=== PATIENT | female | born 1945 | race Caucasian/White ===

== ENCOUNTER 2023-11-04 13:59 | Inpatient (IN) | payer OTHER, SELFPAY ==
--- NOTE | ~2023-11-04 | MR_ITS ---
EXAMINATION: MRI OF THE BRAIN WITHOUT CONTRAST CLINICAL INFORMATION: Ataxia, weakness and concern for stroke. COMPARISON: CT scan of the head 11/04/2023. TECHNIQUE: MRI of the brain was obtained using routine sequences without contrast. FINDINGS: No diffusion abnormalities are identified to suggest an acute or subacute infarct. No mass effect or midline shift is seen. There is mild commensurate prominence of the ventricles and sulci consistent with diffuse volume loss. There is also mild prominence of the extra-axial CSF around the cerebral convexities, which are consistent with cortical volume loss. There are scattered foci of hyperintense T2 and FLAIR signal in the periventricular and subcortical white matter, most consistent with chronic microvascular ischemic changes. No extra-axial fluid collections are seen. The brainstem and cerebellum are normal. No pathologic magnetic susceptibility artifact is identified on the gradient refocused acquisition. The craniovertebral junction, marrow signal, and midline structures are normal; there is a partially empty sella. There are spondylitic changes which are partially visualized in the mid and upper cervical spine. The major intracranial flow-voids at the level of the [place] of [place] are preserved. The dural venous sinus flow-voids are maintained. There are subcutaneous nodules in the right occipital and right parietal regions. There have been bilateral lens extractions. The mastoid air cells and paranasal sinuses are well-aerated. MR/MR head/brain wo con IMPRESSION: 1. There are no acute bleeds or territorial infarcts. No masses are demonstrated. 2. There are chronic microvascular ischemic changes and there is diffuse/cortical volume loss.
--- NOTE | ~2023-11-04 | CT_ITS ---
EXAMINATION: CT HEAD WITHOUT CONTRAST CLINICAL INFORMATION: Dizziness. COMPARISON: CT brain 12/27/2014 TECHNIQUE: Contiguous axial imaging was performed from the skull base to vertex without intravenous administration of contrast. This CT examination was performed using dose optimization techniques as appropriate, variously including the following: *Automated exposure control *Adjustment of mA and/or kV according to patient size (this includes techniques or standardized protocols for targeted exams where dose is matched to indication/reason for exam; i.e. extremities or head) *Use of iterative reconstruction technique DLP: 606 mGy-cm FINDINGS: There is no acute intra-axial, extra-axial bleed, masses or midline shift. There is no acute infarction evolution. There is no edema. Delaney to white matter differentiation is maintained normal. There is mild prominence of bilateral frontal subarachnoid space. The lateral ventricles are symmetrical in size but enlarged. Bone windows reveal no calvarial abnormality. There is no scalp soft tissue abnormality. CT/CT head/brain wo IV con IMPRESSION: 1. No acute intracranial process seen. 2. Mild cerebral volume loss.
[2023-11-04 14:15] VITALS: BP 200/100; BP 212/98; PULSE 60; PULSE 64; RESP 18; TEMP 37.1; O2SAT 100; O2SAT 99; BMI 22.7
--- NOTE | 2023-11-04 14:16 | ED.GENADULT ---
HPI - General Adult General Chief complaint: General Medical Stated complaint: Back pain, dizziness Time Seen by Provider: 11/04/23 14:15 Source: patient and EMS Mode of arrival: EMS Limitations: no limitations History of Present Illness HPI narrative: Patient is a 78 year old assigned female at with a history of left sided breast cancer presenting to the emergency department today with new left sided weakness and inability to balance. Patient states that since 11/02/2023, she woke up feeling very off balance. Patient states that she is unable to walk straight. Patient denies any dizziness, lightheadedness, abdominal pain, nausea, vomiting, fever, chills, blurry vision, double vision, loss of vision, chest pain, difficulty breathing, shortness of breath, back pain, night sweats, pain with urination, increased urinary frequency, increased urinary urgency, blood in her urine or stool, syncope or a near syncopal episode, recent trauma or falls, bowel incontinence, bladder incontinence, bowel retention, bladder retention, or any other complaints at this time. Onset (ago): day(s) (2) Relieving factors: none Exacerbating factors: none Associated symptoms: denies other symptoms Treatments prior to arrival: none Related Data Home Medications Medication Instructions Recorded Confirmed carisoprodol 350 mg tablet 350 mg PO BEDTIME 11/04/23 11/04/23 carvedilol 12.5 mg tablet 12.5 mg PO BID 11/04/23 11/04/23 cholecalciferol (vitamin D3) 50 50 mcg PO DAILY 11/04/23 11/04/23 mcg (2,000 unit) capsule (Vitamin D3) clonazepam 0.5 mg tablet 0.5 mg PO BID 11/04/23 11/04/23 clonazepam 0.5 mg tablet 0.5 mg PO DAILY@1200 PRN Anxiety 11/04/23 11/04/23 diphenhydramine HCl 25 mg capsule 25 mg PO BID 11/04/23 11/04/23 (Banophen) fluticasone propionate 50 1 spray intranasal DAILY 11/04/23 11/04/23 mcg/actuation nasal spray,suspension guanfacine 1 mg tablet 1 mg PO BID 11/04/23 11/04/23 hydromorphone 2 mg tablet 2 mg PO BID PRN Pain (Scale Score 11/04/23 11/04/23 7-10) lansoprazole 30 mg capsule,delayed 30 mg PO DAILY 11/04/23 11/04/23 release multivitamin 1 tab PO DAILY 11/04/23 11/04/23 vitamin B complex 1 tab PO DAILY 11/04/23 11/04/23 Allergies Allergy/AdvReac Type Severity Reaction Status Date / Time codeine [CODEINE] Allergy Unknown DIFFICULTY Verified 11/05/23 02:10 BREATHING epinephrine [EPINEPHRINE] Allergy Unknown UNKNOWN Verified 11/05/23 02:10 iodine [Iodine] Allergy Unknown DIFFICULTY Verified 11/05/23 02:10 BREATHING penicillin V Allergy Unknown Unknown Verified 11/05/23 02:10 Sulfa (Sulfonamide Allergy Unknown RASH Verified 11/05/23 02:10 Antibiotics) From Pen-Vee K Allergy Unknown RASH Uncoded 11/04/23 22:57 From PERCOCET AdvReac Unknown NIGHTMARES/ Uncoded 11/04/23 22:57 AGITATION Review of Systems Constitutional: Constitutional: Reports no additional constitutional complaints, Denies chills, Denies fever(s) and Denies night sweats Eyes: Eyes: Reports no additional eye complaints, Denies blurry vision, Denies change in vision, Denies diplopia, Denies eye discharge, Denies loss of vision and Denies eye pain ENT: Denies dizziness Cardiovascular: Cardiovascular: Reports no additional cardiovascular complaints, Denies chest pain, Denies lightheadedness, Denies Loss of Consciousness and Denies dyspnea Respiratory: Respiratory: Reports no additional respiratory complaints and Denies dyspnea Gastrointestinal: Gastrointestinal: Reports no additional gastrointestinal complaints, Denies abdominal pain, Denies melena, Denies hematochezia, Denies change in bowel habits and Denies change in stool character Genitourinary: Genitourinary: Denies hematuria, Denies urinary frequency, Denies dysuria, Denies urinary incontinence, Denies urinary hesitancy and Denies urinary urgency Musculoskeletal: Musculoskeletal: Reports no additional musculoskeletal complaints, Denies numbness and Denies tingling Neurologic: Denies dizziness, Denies loss of vision, Denies numbness and Denies tingling Comments: inability to walk straight, left sided weakness Psychiatric: Psychiatric: Reports no additional psychiatric complaints Endocrine: Endocrine: Reports no additional endocrine complaints Hematologic/Lymphatic: Hematologic/Lymphatic: Reports no additional hematologic/lymphatic complaints Allergic/Immunologic: Allergic/Immunologic: Reports no additional allergic/immunologic complaints PMFSH Past Medical History Attestation statement: The following information was validated with the patient. Source: old records reviewed and nursing notes reviewed Medical History (Updated 11/05/23 @ 03:39 by Alex Lopez MD) Endometriosis Rheumatoid arthritis Hypertension, essential Asthma Sclerosing mesenteritis Osteoarthritis GERD (gastroesophageal reflux disease) Breast cancer, left Surgical History (Updated 11/05/23 @ 03:25 by Alex Lopez MD) History of lumpectomy of left breast History of total abdominal hysterectomy History of section History of ovarian cystectomy Family History Family History (Updated 11/05/23 @ 03:26 by Alex Lopez MD) Mother No problems noted. Social History Social History Patient Tobacco Use Status: Former Tobacco user Smoked in Last 30 Days: No Use of substances other than those prescribed or required for medical reasons: No Advance Directives: Yes Advance Directives on File: Yes Advance Directives Date on File: 11/04/23 Nutrition Risks: No Nutritional Risk Physical Exam ED Vital Signs: Vital Signs - 24 hr 11/04/23 14:15 11/04/23 19:46 11/04/23 20:17 Temperature 98.7 F Pulse Rate 64 65 67 Respiratory Rate 18 17 14 Blood Pressure 212/98 H 193/77 H 178/80 H Pulse Oximetry 100 97 98 Oxygen Delivery Method Room Air Room Air Room Air BMI result Body Mass Index 22.7 Const General: cooperative, no acute distress, alert and awake Nutritional Appearance: well nourished Orientation/consciousness: patient oriented x3 Limitations: no limitations HENMT Head: Yes normal to inspection and Yes atraumatic Ears: hearing grossly normal bilaterally and external ears normal General nose exam: Normal external nose present, no nasal discharge noted and no epistaxis Face and sinus: Yes normal facial exam, No abrasion and No laceration Mouth: Normal oral and palatal mucosa present, no drooling and no muffled voice Eyes General: appearance normal, both eyes and all related structures Periorbital: periorbital findings normal Eyelids: Yes eyelids normal Conjunctivae: conjunctivae normal Pupils: Equal, round and reactive pupils present EOM: EOMs intact bilaterally Neck Neck: Yes normal visual inspection, Yes full ROM and Yes no lymphadenopathy Chest Chest palpation & inspection: normal inspection of the chest Resp Effort & Inspection: normal respiratory effort and able to speak in complete sentences GI Inspection: Yes normal to inspection Neuro General: patient oriented x3 and moves all extremities Cranial nerves: Yes Equal, round and reactive pupils present Cognition (Neuro): normal cognition Gait exam (Neuro): Ataxic gait present Motor exam (neuro): Other motor observations present (left sided weakness appreciated) Sensory Exam: Normal double simultaneous stimulation for sensation Romberg Test: Positive Extrem General: Yes normal to inspection, Yes full ROM and Yes capillary refill normal Psych Appearance: grossly normal Mental Status: mental status grossly normal Affect: normal affect Attitude: cooperative Thought process: Normal thought process present Thought content: Normal thought content present Insight: Good insight present (Psych) NIH Stroke Scale Internal: Initial- Upon Arrival Time: 14:15 Level of Consciousness: Alert Level of Consciousness Questions: Answers both questions correctly Level of Consciousness Commands: Performs both tasks correctly Best Gaze: Normal Visual: No visual loss Facial Palsy: Normal Motor Arm (Right): No drift Motor Arm (Left): Drift Motor Leg (Right): No drift Motor Leg (Left): No drift Limb Ataxia: Absent Sensory: Normal Best Language: No aphasia Dysarthia: Normal Extinction and Inattention: No abnormality Score: 1 Medications Administered Generic Name Dose Route Start Last Admin Trade Name Freq PRN Reason Stop Dose Admin Acetaminophen 650 mg 11/04/23 21:53 11/05/23 05:14 Acetaminophen 325 Mg Tablet PO 650 mg Q6H PRN Administration Pain, Mild (Pain Scale 1-3) Carvedilol 12.5 mg 11/05/23 09:00 11/05/23 09:23 Carvedilol 12.5 Mg Tablet PO 12.5 mg BID STEPHANIE Administration Protocol Clonazepam 0.5 mg 11/05/23 09:00 11/05/23 09:23 Clonazepam 0.5 Mg Tablet PO 0.5 mg BID STEPHANIE Administration Diphenhydramine HCl 25 mg 11/05/23 09:00 11/05/23 09:23 Diphenhydramine Hcl 25 Mg Capsule PO 25 mg BID STEPHANIE Administration Docusate Sodium 100 mg 11/05/23 09:00 11/05/23 09:24 Docusate Sodium 100 Mg Capsule PO Not Given BID [facility] Enoxaparin Sodium 40 mg 11/04/23 22:00 11/04/23 22:57 Enoxaparin Sodium 40 Mg/0.4 Ml Syringe SUBCUT 40 mg Q24H STEPHANIE Administration Multivitamins/Vitamin C 1 tab 11/05/23 09:00 11/05/23 09:23 Multivitamin Tablet PO 1 tab DAILY STEPHANIE Administration Sodium Chloride 3 ml 11/05/23 00:00 11/05/23 09:24 0.9 % Sodium Chloride Flush 3 Ml Syringe IVFLUSH 3 ml QSHIFT STEPHANIE Administration Vitamin D 50 mcg 11/05/23 09:00 11/05/23 09:23 Cholecalciferol (Vitamin D3) 25 Mcg Tablet PO 50 mcg DAILY STEPHANIE Administration Discontinued Medications Generic Name Dose Route Start Last Admin Trade Name Flavia PRN Reason Stop Dose Admin Carvedilol 12.5 mg 11/05/23 01:06 11/05/23 02:16 Carvedilol 12.5 Mg Tablet PO 11/05/23 01:07 12.5 mg ONCE ONE Administration Protocol Clonazepam 0.5 mg 11/05/23 01:07 11/05/23 02:16 Clonazepam 0.5 Mg Tablet PO 11/05/23 01:08 0.5 mg ONCE ONE Administration Medical Decision Making Medical Decision Making [facility] [place] Narrative: Patient is a 78 year old assigned female at with a history of left sided breast cancer and HTN presenting to the emergency department today with feeling off balance and left sided weakness new since Thursday. Patient's physical exam showed left sided upper and lower extremity weakness, a positive romberg test, and an ataxic gait. Patient's blood work was unremarkable. Patient's EKG was unremarkable. Patient's head CT showed no acute process. Patient is allergic to contrast dye / ioidine and thus, a head and neck CTA could not be obtained. Patient's blood pressure remained hypertensive while in the department with the highest being 212/98. I spoke to the hospitalist who agreed to admission. I explained my physical exam findings as well as all test results to the patient. I answered all questions asked by the patient. Patient verbalized agreement and understanding with this treatment plan and admission. Differential Diagnosis Differential Diagnoses: The differential diagnosis associated with the presentation includes Cerebellar stroke Hypertensive urgency Hypertensive emergency TIA CVA Admission/Observation Consideration of admission/observation: Escalation of care including admission/observation considered Patient to be admitted. Consult Healthcare Provider Management of the patient was discussed with: Hospitalist (agreed to admission.) Lab Data MDM Lab Attestation statement: I reviewed the patient's lab results. My interpretation of these studies and their corresponding values is that they are grossly normal. 11/05/23 06:11 11/05/23 06:11 Labs: Lab Results 11/04/23 11/04/23 Range/Units 15:13 20:57 WBC 4.6 L (4.8-10.8) X10*3/uL RBC 4.20 (4.20-5.50) X10*6/uL Hgb 12.5 (12.0-16.0) g/dl Hct 37.2 (37.0-47.0) % MCV 88.6 (80.0-98.0) fL MCH 29.8 (27.0-33.0) pg MCHC 33.6 (31.0-35.0) g/dl RDW 11.9 (11.0-16.0) % Plt Count 238 (160-400) X10*3/uL MPV 9.5 (9.4-12.3) fL Immature Gran % (Auto) 0.2 (0.0-0.4) % Neut % (Auto) 45.7 (45-73) % Lymph % (Auto) 41.6 H (20-40) % Payne % (Auto) 7.2 (2-11) % Eos % (Auto) 4.6 H (0-4) % Baso % (Auto) 0.7 (0-2) % Lymph # (Auto) 1.9 (1.2-4.9) X10*3/uL Payne # (Auto) 0.3 (0.1-1.2) X10*3/uL Eos # (Auto) 0.2 (0.0-0.4) X10*3/uL Baso # (Auto) 0.0 (0.0-0.2) X10*3/uL Abs Immat Gran (auto) 0.01 (0.00-0.03) X10*3/uL Absolute Neuts (auto) 2.1 (2.0-8.3) x10*3/uL Absolute Nucleated RBC 0.000 (0.0-0.012) X10*3/uL Nucleated RBC % (auto) 0.0 (0.0-0.2) /100WBC PT 11.8 (11.1-13.3) SEC INR 1.0 (0.9-1.1) APTT 30.9 (26.0-36.4) SEC Sodium 134 L (135-145) mmol/L Potassium 4.7 (3.3-5.1) mmol/L Chloride 100 (96-108) mmol/L Carbon Dioxide 27 (22-29) mmol/L Anion Gap 12 (12-20) BUN 11 (9-16) mg/dL Creatinine 0.83 (0.5-1.4) mg/dL Estim Creat Clear Calc 45.6 Estimated GFR > 60 Random Glucose 99 (60-115) mg/dL Calcium 8.9 (8.4-10.2) mg/dL Magnesium 1.9 (1.6-2.6) mg/dL Total Bilirubin 0.4 (0.0-1.0) mg/dL AST 24 (5-31) U/L ALT 15 (0-31) U/L Alkaline Phosphatase 47 (39-117) U/L Troponin I High Sens < 2.7 (<3.5-17.0) ng/L Total Protein 6.8 (6.5-8.0) g/dL Albumin 3.8 (3.5-5.0) g/dL Urine Color Yellow Urine Appearance Clear Urine pH 6.5 (5.0-9.0) Ur Specific [place] <= 1.005 (1.005-1.025) Urine Protein Negative (Neg-Trace) mg/dL Urine Glucose (UA) Negative (Negative) mg/dL Urine Ketones 15 (Negative) mg/dL Urine Blood Negative (Negative) Urine Nitrite Negative (Negative) Ur Leukocyte Esterase Negative (Negative) Influenza Type A (PCR) NEGATIVE (Negative) Influenza Type B (PCR) NEGATIVE (Negative) RSV RNA Qual (PCR) NEGATIVE (Negative) SARS-CoV-2 RNA (RT-PCR) NEGATIVE (Negative) Independent Interpretation I performed an independent interpretation of an: EKG and CT Scan Interpretation: My interpretation is in agreement with the radiologist's impression of this imaging study. EXAMINATION: CT HEAD WITHOUT CONTRAST CLINICAL INFORMATION: Dizziness. COMPARISON: CT brain 12/27/2014 TECHNIQUE: Contiguous axial imaging was performed from the skull base to vertex without intravenous administration of contrast. This CT examination was performed using dose optimization techniques as appropriate, variously including the following: *Automated exposure control *Adjustment of mA and/or kV according to patient size (this includes techniques or standardized protocols for targeted exams where dose is matched to indication/reason for exam; i.e. extremities or head) *Use of iterative reconstruction technique DLP: 606 mGy-cm FINDINGS: There is no acute intra-axial, extra-axial bleed, masses or midline shift. There is no acute infarction evolution. There is no edema. Delaney to white matter differentiation is maintained normal. There is mild prominence of bilateral frontal subarachnoid space. The lateral ventricles are symmetrical in size but enlarged. Bone windows reveal no calvarial abnormality. There is no scalp soft tissue abnormality. CT/CT head/brain wo IV con IMPRESSION: 1. No acute intracranial process seen. 2. Mild cerebral volume loss. Dictated By: Bandar Bloom MD Signed By: Electronically signed by Bandar Bloom MD 11/04/23 1837 Vent. Rate: 066 BPM Atrial Rate: 066 BPM P-R Int: 180 ms QRS Dur: 080 ms QT Int: 390 ms P-R-T Axes: 071 029 039 degrees QTc Int: 408 ms Normal sinus rhythm Normal ECG When compared with ECG of 19-FEB-2010 14:07, No significant change was found Electronically Signed By:BRUCE VILLASEÑOR Dictated By: Bruce Villaseñor MD Signed By: Electronically signed by Bruce Villaseñor MD 11/04/23 1549 Radiology Impression Discussion of test interpretation with radiology: I have reviewed the radiologist's reading. Independent Historian Clinical information obtained from an independent historian. History obtained from or confirmed by: EMS (EMS provided additional history and confirmed the history provided by the patient) Chronic Conditions Patient?s care impacted by: Hypertension Critical Care Time Critical Care Time Critical Care Time: Yes Total Critical Care Time: 45 Attestation: I spent 45 minutes of Critical Care Time with this patient. This does not include time spent on separately reported billable procedures. Discharge Plan Discharge Clinical Impression: Ataxic gait, Hypertension Patient Disposition: Admitted As Inpatient
--- NOTE | 2023-11-04 14:38 | ECG_ITS ---
Test Reason : PARASTHESIAS Blood Pressure : / mmHG Vent. Rate : 066 BPM Atrial Rate : 066 BPM P-R Int : 180 ms QRS Dur : 080 ms QT Int : 390 ms P-R-T Axes : 071 029 039 degrees QTc Int : 408 ms Normal sinus rhythm Normal ECG When compared with ECG of 19-FEB-2010 14:07, No significant change was found Referred By: Naomi Valentin Electronically Signed By:DARRYL VILLASEÑOR
[2023-11-04 15:18] LABS: MANUAL DIFF FLAG NO
[2023-11-04 15:20] LABS: Basophils Percent Auto 0.7 % (0-2); Eosinophils Absolute Auto 0.2 X10*3/uL (0.0-0.4); Eosinophils Percent Auto 4.6 % (0-4); Hematocrit 37.2 % (37.0-47.0); Hemoglobin 12.5 g/dl (12.0-16.0); Imm Gran Abs Auto 0.01 X10*3/uL (0.00-0.03); Imm Gran Pct Auto 0.2 % (0.0-0.4); Lymphocytes Absolute Auto 1.9 X10*3/uL (1.2-4.9); Lymphocytes Percent Auto 41.6 % (20-40); Mean Corpuscular HGB Conc 33.6 g/dl (31.0-35.0); Mean Corpuscular Hemoglobin 29.8 pg (27.0-33.0); Mean Corpuscular Volume 88.6 fL (80.0-98.0); Mean Platelet Volume 9.5 fL (9.4-12.3); Monocytes Absolute Auto 0.3 X10*3/uL (0.1-1.2); Monocytes Percent Auto 7.2 % (2-11); Neutrophils Absolute Auto 2.1 x10*3/uL (2.0-8.3); Neutrophils Percent Auto 45.7 % (45-73); Platelet Count 238 X10*3/uL (160-400); Red Cell Distribution Width 11.9 % (11.0-16.0); White Blood Count 4.6 X10*3/uL (4.8-10.8)
[2023-11-04 15:24] LABS: Prothrombin Time 11.8 SEC (11.1-13.3)
[2023-11-04 15:27] LABS: Partial Thromboplastin Time 30.9 SEC (26.0-36.4)
[2023-11-04 15:32] LABS: Alanine Aminotransferase 15 U/L (0-31); Albumin Level 3.8 g/dL (3.5-5.0); Alkaline Phosphatase 47 U/L (39-117); Anion Gap 12 (12-20); Aspartate Amino Transferase 24 U/L (5-31); Bilirubin Total 0.4 mg/dL (0.0-1.0); Blood Urea Nitrogen 11 mg/dL (9-16); Calcium 8.9 mg/dL (8.4-10.2); Carbon Dioxide 27 mmol/L (22-29); Chloride 100 mmol/L (96-108); Creatinine Clr Calc Pharmacy 45.6; Estimated Glomerular Filt Rate > 60; Glucose Random 99 mg/dL (60-115); Magnesium 1.9 mg/dL (1.6-2.6); Potassium 4.7 mmol/L (3.3-5.1); Sodium 134 mmol/L (135-145); Total Protein 6.8 g/dL (6.5-8.0)
[2023-11-04 15:40] LABS: Troponin-I High Sensitivity < 2.7 ng/L (<3.5-17.0)
[2023-11-04 16:03] LABS: Influenza A PCR NEGATIVE (Negative); Influenza B PCR NEGATIVE (Negative); Resp Syncy Virus RNA Qual PCR NEGATIVE (Negative); SARS COV2 PCR INHOUSE NEGATIVE (Negative)
--- NOTE | 2023-11-04 19:32 | PC.NURSE ---
pt ambulated to bathroom with one person assist, feels off balance and wobbly, but ambulates with assistance. speech normal, no slurring. No faical droop noted. alert, oriented. reports no pain at this time.
[2023-11-04 19:46] VITALS: BP 193/77; PULSE 65; RESP 17; O2SAT 97
--- NOTE | 2023-11-04 19:56 | PC.NURSE ---
pt remains hypertensive - PA aware. admission pending. plan of care ongoing. awaiting bed assignment. urine sample pending.
--- NOTE | 2023-11-04 20:09 | PHA.MEDREC ---
Pharmacy Consult ? Medication Reconciliation Pharmacy has completed the medication reconciliation. Patient reported medications. Reports taking clonazepam every morning and night, and sometimes in the afternoon. Maral [place], LupilloD
[2023-11-04 20:17] VITALS: BP 178/80; PULSE 67; RESP 14; O2SAT 98
--- NOTE | 2023-11-04 20:18 | PC.NURSE ---
nursing swallow screen PASS
[2023-11-04 21:06] LABS: Appearance Urine Clear; Color Urine Yellow; Glucose Urine UA Negative (Negative); Leukocyte Esterase Urine Negative (Negative); Nitrite Urine Negative (Negative); PH 6.5 (5.0-9.0); Specific Gravity - Urine <= 1.005 (1.005-1.025); Urine Blood Negative (Negative); Urine Ketones 15 mg/dL (Negative); Urine Protein Negative (Neg-Trace)
[2023-11-04 22:51] VITALS: BP 183/73; PULSE 71; RESP 14; O2SAT 97
[2023-11-04] MEDS: Enoxaparin Sodium 40 MG/0.4 ML SYRINGE SUBCUT (22:57)
--- NOTE | 2023-11-04 23:38 | PC.NURSE ---
pt is alert and oriented, has a headache and has not eaten since this morning.
--- NOTE | 2023-11-04 23:46 | P.HPHOSP_ITS ---
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 She reports having neck and back pain and feeling very dizzy when she turns her head. She also has an unsteady gait whereby she is unable to walk in a straight line stating that she woke up on 11/02/2023 feeling very off balance. She was not able to reach her PCP and so googled her symptoms and noted that they could be due to arthritis in her neck and so she called her 'arthritis doctor' who in turn referred her back to her PCP. When she still could not reach her PCP, she called her [facility] who sent over someone and after evaluation, called an ambulance for her and had her come to the ED. She denies any falls, neck stiffness, headaches, fevers or chills. She has never had a stroke and is not a diabetic. Initial evaluation done in the ED was notable for significantly elevated BP at 21/98 mmHg though she reports compliance with her antihypertensive medications. Her blood work and CT head were largely normal. Admission was requested for an MRI to further evaluate for possible cerebellar infarct. Review of Systems 2 Review of Systems: Yes all other systems are reviewed and are negative [facility] Medical History (Updated 11/05/23 @ 03:39 by Alex Lopez MD) Endometriosis Rheumatoid arthritis Hypertension, essential Asthma Sclerosing mesenteritis Osteoarthritis GERD (gastroesophageal reflux disease) Breast cancer, left Functional capacity: independent ambulation Family History Mother No problems noted. Surgical History (Updated 11/05/23 @ 03:25 by Alex Lopez MD) History of lumpectomy of left breast History of total abdominal hysterectomy History of section History of ovarian cystectomy Social History Patient Tobacco Use Status: Former Tobacco user Smoked in Last 30 Days: No Use of substances other than those prescribed or required for medical reasons: No Advance Directives: Yes Advance Directives on File: Yes Advance Directives Date on File: 11/04/23 Nutrition Risks: No Nutritional Risk Meds Allergies Allergy/AdvReac Type Severity Reaction Status Date / Time codeine [CODEINE] Allergy Unknown DIFFICULTY Verified 11/05/23 02:10 BREATHING epinephrine [EPINEPHRINE] Allergy Unknown UNKNOWN Verified 11/05/23 02:10 iodine [Iodine] Allergy Unknown DIFFICULTY Verified 11/05/23 02:10 BREATHING penicillin V Allergy Unknown Unknown Verified 11/05/23 02:10 Sulfa (Sulfonamide Allergy Unknown RASH Verified 11/05/23 02:10 Antibiotics) acetaminophen [From PERCOCET] AdvReac Unknown NIGHTMARES/ Verified 11/05/23 02:10 AGITATION From Pen-Vee K Allergy Unknown RASH Uncoded 11/04/23 22:57 From PERCOCET AdvReac Unknown NIGHTMARES/ Uncoded 11/04/23 22:57 AGITATION Home Medications Medication Instructions Recorded Confirmed Last Taken Type carisoprodol 350 mg tablet 350 mg PO BEDTIME 11/04/23 11/04/23 11/03/23 History carvedilol 12.5 mg tablet 12.5 mg PO BID 11/04/23 11/04/23 11/04/23 History cholecalciferol (vitamin D3) 50 50 mcg PO DAILY 11/04/23 11/04/23 11/04/23 History mcg (2,000 unit) capsule (Vitamin D3) clonazepam 0.5 mg tablet 0.5 mg PO BID 11/04/23 11/04/23 11/04/23 History clonazepam 0.5 mg tablet 0.5 mg PO DAILY@1200 PRN Anxiety 11/04/23 11/04/23 Unknown History diphenhydramine HCl 25 mg capsule 25 mg PO BID 11/04/23 11/04/23 11/04/23 History (Banophen) fluticasone propionate 50 1 spray intranasal DAILY 11/04/23 11/04/23 11/04/23 History mcg/actuation nasal spray,suspension guanfacine 1 mg tablet 1 mg PO BID 11/04/23 11/04/23 11/04/23 History hydromorphone 2 mg tablet 2 mg PO BID PRN Pain (Scale Score 11/04/23 11/04/23 Unknown History 7-10) lansoprazole 30 mg capsule,delayed 30 mg PO DAILY 11/04/23 11/04/23 11/04/23 History release multivitamin 1 tab PO DAILY 11/04/23 11/04/23 11/04/23 History vitamin B complex 1 tab PO DAILY 11/04/23 11/04/23 11/04/23 History Physical Exam 2 Vital Signs and Narrative: Vital Signs: Last Vital Signs Temp 98.7 F 11/04/23 14:15 Pulse 71 11/04/23 22:51 Resp 14 11/04/23 22:51 BP 183/73 H 11/04/23 22:51 Pulse Ox 97 11/04/23 22:51 O2 Del Method Room Air 11/04/23 22:51 BMI result Body Mass Index 22.7 General: Well nourished elderly white female in bed. Awake and alert. In no apparent distress Eyes: No pallor or jaundice. PERRLA, EOMI HENT: Moist oral mucus membranes. No oropharyngeal lesions. Neck: Supple. No cervical adenopathy. No JVD Cardiovascular: Regular rate and rhythm. Normal heart sounds. No murmurs, rubs or gallops. No JVD. No peripheral edema. Respiratory: Normal respiratory effort with no accessory muscle use. CTAB. Gastrointestinal: Abdomen is soft, non-tender, non-distended. NABS. No hepatosplenomegaly Extremities: No edema or calf pain. Good peripheral pulses Skin: Warm/Dry. No rashes. No mottling. Capillary refill is < 2 seconds Neurological: AAOx4. Intact speech & cognition. +ve Romberg test. CN II - XII grossly intact but not individually tested. Hematologic: No bleeding. No ecchymosis. No swollen or tender lymph nodes. Psychiatric: Cooperative. Appropriate mood and affect. Results Labs 11/04/23 15:13 11/04/23 15:13 Labs: Laboratory Results - last 24 hr 11/04/23 11/04/23 15:13 20:57 MCV 88.6 MCH 29.8 MCHC 33.6 RDW 11.9 Plt Count 238 MPV 9.5 Immature Gran % (Auto) 0.2 Neut % (Auto) 45.7 Lymph % (Auto) 41.6 H [place] % (Auto) 7.2 Eos % (Auto) 4.6 H Baso % (Auto) 0.7 Lymph # (Auto) 1.9 [place] # (Auto) 0.3 Eos # (Auto) 0.2 Baso # (Auto) 0.0 Abs Immat Gran (auto) 0.01 Absolute Neuts (auto) 2.1 Absolute Nucleated RBC 0.000 Nucleated RBC % (auto) 0.0 PT 11.8 INR 1.0 APTT 30.9 Anion Gap 12 Estim Creat Clear Calc 45.6 Estimated GFR > 60 Random Glucose 99 Calcium 8.9 Magnesium 1.9 Total Bilirubin 0.4 AST 24 ALT 15 Alkaline Phosphatase 47 Total Protein 6.8 Albumin 3.8 Urine Color Yellow Urine Appearance Clear Urine pH 6.5 Ur Specific [place] <= 1.005 Urine Protein Negative Urine Glucose (UA) Negative Urine Ketones 15 Urine Blood Negative Urine Nitrite Negative Ur Leukocyte Esterase Negative Influenza Type A (PCR) NEGATIVE Influenza Type B (PCR) NEGATIVE RSV RNA Qual (PCR) NEGATIVE SARS-CoV-2 RNA (RT-PCR) NEGATIVE ECG ECG interpretation date: 11/05/23 ECG interpretation time: 03:29 Prior ECG tracings: available for review Interpretation: NSR at 66 bpm. Normal axis. Normal WA interval. Imaging Radiologist's Impressions: Impressions Head CT 11/04/23 17:50 IMPRESSION: 1. No acute intracranial process seen. 2. Mild cerebral volume loss. Assessment and Plan (1) Hypertensive urgency: Status: Acute (2) Unsteady gait when walking: Status: Acute (3) Dizziness: Status: Acute (4) Romberg's test positive: Status: Acute (5) Asthma: Qualifiers: Asthma severity: unspecified severity Asthma persistence: unspecified Asthma complication type: unspecified Qualified Code(s): J45.909 - Unspecified asthma, uncomplicated Status: Inactive (6) Sclerosing mesenteritis: Status: Inactive (7) Osteoarthritis: Qualifiers: Osteoarthritis location: knee Osteoarthritis type: primary Laterality: unspecified laterality Qualified Code(s): M17.10 - Unilateral primary osteoarthritis, unspecified knee Status: Inactive (8) GERD (gastroesophageal reflux disease): Qualifiers: Esophagitis presence: without esophagitis Qualified Code(s): K21.9 - Gastro-esophageal reflux disease without esophagitis Status: Inactive (9) Breast cancer, left: Qualifiers: Breast location: unspecified site of breast Estrogen receptor status: u nspecified Patient sex: female Qualified Code(s): C50.912 - Malignant neoplasm of unspecified site of left female breast Status: Inactive Plan 78 year old white female with PMH of sclerosing mesenteritis, left breast cancer s/p lumpectomy, hypertension, endometriosis, 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 Hypertensive urgency - noted with significantly elevated BP at 212/98 mmHg - reports compliance to medications - restart Carvedilol - closely monitor BP 2. Dizziness - she reports feeling dizzy especially when she turns her head - no associated tinnitus or decreased hearing - concern for BPPV vs effects of uncontrolled hypertension - trial of PRN Meclizine - improve BP control 3. Unsteady gait - with a positive Romberg test - concern for cerebellar infarct - get Brain MRI in AM - consider Neurology evaluation DVT: SC Lovenox CODE STATUS: Full code Admission for at least 2 midnights for management of hypertensive urgency and r/o CVA with MRI plus will need Neurology evaluation Quality Stroke Does the patient have a stroke diagnosis?: No VTE Prior VTE?: No VTE Risk Level:: Medical - moderate - high VTE Device Contraindication: N/A - Device Ordered VTE Drug Contraindication: N/A - Med Ordered
--- NOTE | 2023-11-05 00:26 | PC.NURSE ---
Dr. Gonzalez made aware that the pt home meds are not verified.
[2023-11-05 01:45] VITALS: BP 171/69; PULSE 73; RESP 18; TEMP 36.8
--- NOTE | 2023-11-05 01:45 | MHC.EDTECH ---
Hourly rounds and vitals completed,Patient's BP is elevated Liliana RN aware.Patient ambulated with a one assist to the bathroom. Belonging list completed and copy placed in chart,patient has 65.00 Osorio and will keep in pocketbook
[2023-11-05] MEDS: 0.9 % Sodium Chloride Flush 3 ML SYRINGE IVFLUSH ×2 (02:16→09:24)
[2023-11-05] MEDS: carvediloL 12.5 MG TABLET PO ×3 (02:16→20:52)
[2023-11-05] MEDS: clonazePAM 0.5 MG TABLET PO ×4 (02:16→20:51)
--- NOTE | 2023-11-05 02:24 | PC.NURSE ---
this rn assumed care of pt from emc pt medicated according to mar placed on site monitor and provided with sandwich and decaf tea
[2023-11-05] MEDS: Acetaminophen 325 MG TABLET 650 MG PO ×2 (05:14→14:29)
[2023-11-05 05:58] VITALS: BP 132/64; PULSE 58; RESP 14; TEMP 36.4; O2SAT 97
[2023-11-05 06:38] LABS: Hematocrit 33.6 % (37.0-47.0); Hemoglobin 11.3 g/dl (12.0-16.0); Mean Corpuscular HGB Conc 33.6 g/dl (31.0-35.0); Mean Corpuscular Hemoglobin 29.7 pg (27.0-33.0); Mean Corpuscular Volume 88.2 fL (80.0-98.0); Platelet Count 223 X10*3/uL (160-400); Red Blood Count 3.81 X10*6/uL (4.20-5.50); White Blood Count 4.7 X10*3/uL (4.8-10.8)
[2023-11-05 06:56] LABS: Anion Gap 10 (12-20); Blood Urea Nitrogen 11 mg/dL (9-16); Calcium 8.7 mg/dL (8.4-10.2); Carbon Dioxide 30 mmol/L (22-29); Chloride 101 mmol/L (96-108); Cholesterol 201 mg/dL (<200); Creatinine Clr Calc Pharmacy 46.2; Estimated Glomerular Filt Rate > 60; Glucose Random 108 mg/dL (60-115); HDL Cholesterol 32 mg/dL (>40); LDL Cholesterol Calculated 142 mg/dL (<100); Magnesium 1.9 mg/dL (1.6-2.6); Sodium 137 mmol/L (135-145); Triglycerides 138 mg/dL (<150)
--- NOTE | 2023-11-05 08:42 | PC.NURSE ---
PT at bedside to evaluate patient.
[2023-11-05 09:14] VITALS: BP 174/77; PULSE 66; RESP 21; TEMP 37; O2SAT 99
[2023-11-05] MEDS: Cholecalciferol (Vitamin D3) 25 MCG TABLET 50 MCG PO (09:23)
[2023-11-05] MEDS: diphenhydrAMINE HCL 25 MG CAPSULE PO ×2 (09:23→20:51)
[2023-11-05] MEDS: Multivitamin TABLET 1 TAB PO (09:23)
--- NOTE | 2023-11-05 10:20 | MHC.CM.PN ---
IMM 11/05/23. Pt ;kenneth alone in an apt., she has 18.5 hours per week of COUNTER HELP services through [facility]. She has a walker at home, but reports that she does not use it. She may need assistance with transportation home if COUNTER HELP is not available.
[2023-11-05] MEDS: Fluticasone Propionate Nasal 16 GM SPRAY 1 SPRAY NOSTRIL-B (10:33)
--- NOTE | 2023-11-05 12:37 | PC.NURSE ---
alert, speech clear, nad, randolph, steady gait, no trouble swallowing, skin wpd, c/o anxiety with MRI in the past and 2nd 0.5 mg klonopin given as ordered, pt to MRI
[2023-11-05] MEDS: Aspirin 81 MG TAB.CHEW PO (14:28)
--- NOTE | 2023-11-05 14:44 | PM.NEUROCN ---
History of Present Illness Data of Consult Service Date: 11/05/23 Primary Care Provider: Unknown Physician HPI Reason for consult: Dizziness 78 years old woman with uncontrolled hypertension who came to hospital with an episode of dizziness and passing out. She said that initially happened few days ago when she was walking on the side and could not walk straight. There was no associated focal weakness or change in speech or vision. She did not seek any medical attention that day. Now today she had similar symptom again but this time it felt like her knees were going to giveaway and she did not have any feeling in her knees. At 1 point she fell down and stated that she passed out. She said that it had never happened before. There was no associated pain. Now she was feeling okay. Review of Systems Review of Systems: No recent cold or flu-like illness PMFSH Past Medical History Medical History (Updated 11/05/23 @ 14:47 by David Guerin MD) Endometriosis Rheumatoid arthritis Hypertension, essential Asthma Sclerosing mesenteritis Osteoarthritis GERD (gastroesophageal reflux disease) Breast cancer, left Functional capacity: independent ambulation Family History Family History (Updated 11/05/23 @ 03:26 by Alex Lopez MD) Mother No problems noted. Surgical History Surgical History History of lumpectomy of left breast History of total abdominal hysterectomy History of section History of ovarian cystectomy Social History Social History Patient Tobacco Use Status: Former Tobacco user Smoked in Last 30 Days: No Use of substances other than those prescribed or required for medical reasons: No Advance Directives: Yes Advance Directives on File: Yes Advance Directives Date on File: 11/04/23 Nutrition Risks: No Nutritional Risk service: No Meds Allergies Allergy/AdvReac Type Severity Reaction Status Date / Time codeine [CODEINE] Allergy Unknown DIFFICULTY Verified 11/05/23 02:10 BREATHING epinephrine [EPINEPHRINE] Allergy Unknown UNKNOWN Verified 11/05/23 02:10 iodine [Iodine] Allergy Unknown DIFFICULTY Verified 11/05/23 02:10 BREATHING penicillin V Allergy Unknown Unknown Verified 11/05/23 02:10 Sulfa (Sulfonamide Allergy Unknown RASH Verified 11/05/23 02:10 Antibiotics) From Pen-Vee K Allergy Unknown RASH Uncoded 11/04/23 22:57 From PERCOCET AdvReac Unknown NIGHTMARES/ Uncoded 11/04/23 22:57 AGITATION Active Medications: Current Medications Acetaminophen (Acetaminophen 325 Mg Tablet) 650 mg PO Q6H PRN PRN Reason: Pain, Mild (Pain Scale 1-3) Last Admin: 11/05/23 14:29 Dose: 650 mg Al Hydroxide/Mg Hydroxide (Magnesium Hydrox/Alum Hydrox 30 Ml Oral.Susp) 30 ml PO Q4H PRN PRN Reason: Heartburn/Nausea Aspirin (Aspirin 81 Mg Tab.Chew) 81 mg PO DAILY [facility] Last Admin: 11/05/23 14:28 Dose: 81 mg Carisoprodol (Carisoprodol 350 Mg Tablet) 350 mg PO BEDTIME [facility] Carvedilol (Carvedilol 12.5 Mg Tablet) 12.5 mg PO BID [facility]; Protocol Last Admin: 11/05/23 09:23 Dose: 12.5 mg Clonazepam (Clonazepam 0.5 Mg Tablet) 0.5 mg PO BID [facility] Last Admin: 11/05/23 09:23 Dose: 0.5 mg Clonazepam (Clonazepam 0.5 Mg Tablet) 0.5 mg PO BEDTIME PRN PRN Reason: Anxiety Diphenhydramine HCl (Diphenhydramine Hcl 25 Mg Capsule) 25 mg PO BID [facility] Last Admin: 11/05/23 09:23 Dose: 25 mg Docusate Sodium (Docusate Sodium 100 Mg Capsule) 100 mg PO BID [facility] Last Admin: 11/05/23 09:24 Dose: Not Given Enoxaparin Sodium (Enoxaparin Sodium 40 Mg/0.4 Ml Syringe) 40 mg SUBCUT Q24H [facility] Last Admin: 11/04/23 22:57 Dose: 40 mg Fluticasone Propionate (Fluticasone Propionate Nasal 16 Gm [place]) 1 spray NOSTRIL-B DAILY [facility] Last Admin: 11/05/23 10:33 Dose: 1 spray Melatonin (Melatonin 3 Mg Tablet) 6 mg PO BEDTIME PRN PRN Reason: Insomnia Multivitamins/Vitamin C (Multivitamin Tablet) 1 tab PO DAILY [facility] Last Admin: 11/05/23 09:23 Dose: 1 tab Ondansetron HCl (Ondansetron Hcl 4 Mg/2 Ml Vial) 4 mg IVPUSH Q8H PRN PRN Reason: Nausea and Vomiting Senna (Sennosides 8.6 Mg Tablet) 17.2 mg PO BEDTIME PRN PRN Reason: Constipation Sodium Chloride (0.9 % Sodium Chloride Flush 3 Ml Syringe) 3 ml IVFLUSH QSHIFT [facility] Last Admin: 11/05/23 09:24 Dose: 3 ml Vitamin D (Cholecalciferol (Vitamin D3) 25 Mcg Tablet) 50 mcg PO DAILY [facility] Last Admin: 11/05/23 09:23 Dose: 50 mcg Home Medications Medication Instructions Recorded Confirmed Last Taken Type carisoprodol 350 mg tablet 350 mg PO BEDTIME 11/04/23 11/04/23 11/03/23 History carvedilol 12.5 mg tablet 12.5 mg PO BID 11/04/23 11/04/23 11/04/23 History cholecalciferol (vitamin D3) 50 50 mcg PO DAILY 11/04/23 11/04/23 11/04/23 History mcg (2,000 unit) capsule (Vitamin D3) clonazepam 0.5 mg tablet 0.5 mg PO BID 11/04/23 11/04/23 11/04/23 History clonazepam 0.5 mg tablet 0.5 mg PO DAILY@1200 PRN Anxiety 11/04/23 11/04/23 Unknown History diphenhydramine HCl 25 mg capsule 25 mg PO BID 11/04/23 11/04/23 11/04/23 History (Banophen) fluticasone propionate 50 1 spray intranasal DAILY 11/04/23 11/04/23 11/04/23 History mcg/actuation nasal spray,suspension guanfacine 1 mg tablet 1 mg PO BID 11/04/23 11/04/23 11/04/23 History hydromorphone 2 mg tablet 2 mg PO BID PRN Pain (Scale Score 11/04/23 11/04/23 Unknown History 7-10) lansoprazole 30 mg capsule,delayed 30 mg PO DAILY 11/04/23 11/04/23 11/04/23 History release multivitamin 1 tab PO DAILY 11/04/23 11/04/23 11/04/23 History vitamin B complex 1 tab PO DAILY 11/04/23 11/04/23 11/04/23 History Physical Exam Vital Signs: Vital Signs: Last Vital Signs Temp 98.6 F 11/05/23 09:14 Pulse 66 11/05/23 09:14 Resp 21 H 11/05/23 09:14 BP 174/77 H 11/05/23 09:14 Pulse Ox 99 11/05/23 09:14 O2 Del Method Room Air 11/05/23 09:14 BMI result Body Mass Index 22.7 Neuro: Other: She is alert and awake with normal spontaneity of speech fluency comprehension and affect. Face is symmetrical. Visual novoa are full. There is no focal arm or leg weakness. Plantars are flexor. [id number]-dx-[id number] testing is okay. Results Labs 11/05/23 06:11 11/05/23 06:11 Labs: Short CBC 11/04/23 11/05/23 Range/Units 15:13 06:11 WBC 4.6 L 4.7 L (4.8-10.8) X10*3/uL Hgb 12.5 11.3 L (12.0-16.0) g/dl Hct 37.2 33.6 L (37.0-47.0) % Plt Count 238 223 (160-400) X10*3/uL BMP 11/04/23 11/05/23 15:13 06:11 Sodium 134 L 137 Potassium 4.7 4.0 Chloride 100 101 Carbon Dioxide 27 30 H BUN 11 11 Creatinine 0.83 0.82 Calcium 8.9 8.7 Liver Function 11/04/23 Range/Units 15:13 Total Bilirubin 0.4 (0.0-1.0) mg/dL AST 24 (5-31) U/L ALT 15 (0-31) U/L Alkaline Phosphatase 47 (39-117) U/L Albumin 3.8 (3.5-5.0) g/dL Urine 11/04/23 Range/Units 20:57 Urine Color Yellow Urine Appearance Clear Urine pH 6.5 (5.0-9.0) Ur Specific [place] <= 1.005 (1.005-1.025) Urine Protein Negative (Neg-Trace) mg/dL Urine Glucose (UA) Negative (Negative) mg/dL Noncontrast head CT revealed moderate bilateral fronto parietal cortical atrophy. MRI of brain revealed mild microvascular ischemic changes in addition to atrophy with no acute lesion. Assessment and Plan (1) Hypertensive encephalopathy: Status: Acute 78 years old woman who probably had severe hypertension related symptomatology resulting and dizziness unsteadiness confusion bilateral weakness and might have passed out. At the same time, she might also be suffering from seizure disorder in addition to or due to blood pressure related vascular disease. Proper blood pressure control, baby aspirin daily, statin, and EEG are recommended. Procedures Date of Service Date of Service: 11/05/23
--- NOTE | 2023-11-05 16:14 | HO.PM.IMPN ---
Subjective Subjective Date of Service: 11/05/23 Interval History: f/u on dizziness, unsteady gait HTN urgency no more dizziness, gait is better, blood pressure improved Physical Exam Vital Signs: Vital Signs: Last Vital Signs Temp 98.6 F 11/05/23 09:14 Pulse 66 11/05/23 09:14 Resp 21 H 11/05/23 09:14 BP 174/77 H 11/05/23 09:14 Pulse Ox 99 11/05/23 09:14 O2 Del Method Room Air 11/05/23 09:14 BMI result Body Mass Index 22.7 Const: Other: General: AO X 3, no acute distress Resp: CTA bilateral CVS: S1,S2,RRR GI: +BS, NT, no distention Skin: No rash Neuro: motor grossly intact Psych: appropriate affect Objective Data Active Medications Acetaminophen (Acetaminophen 325 Mg Tablet) 650 mg PO Q6H PRN PRN Reason: Pain, Mild (Pain Scale 1-3) Last Admin: 11/05/23 14:29 Dose: 650 mg Documented By: TRISTON Al Hydroxide/Mg Hydroxide (Magnesium Hydrox/Alum Hydrox 30 Ml Oral.Susp) 30 ml PO Q4H PRN PRN Reason: Heartburn/Nausea Aspirin (Aspirin 81 Mg Tab.Chew) 81 mg PO DAILY [facility] Last Admin: 11/05/23 14:28 Dose: 81 mg Documented By: TRISTON Carisoprodol (Carisoprodol 350 Mg Tablet) 350 mg PO BEDTIME [facility] Carvedilol (Carvedilol 12.5 Mg Tablet) 12.5 mg PO BID [facility]; Protocol Last Admin: 11/05/23 09:23 Dose: 12.5 mg Documented By: RAMBO Clonazepam (Clonazepam 0.5 Mg Tablet) 0.5 mg PO BID [facility] Last Admin: 11/05/23 09:23 Dose: 0.5 mg Documented By: RAMBO Clonazepam (Clonazepam 0.5 Mg Tablet) 0.5 mg PO BEDTIME PRN PRN Reason: Anxiety Diphenhydramine HCl (Diphenhydramine Hcl 25 Mg Capsule) 25 mg PO BID [facility] Last Admin: 11/05/23 09:23 Dose: 25 mg Documented By: RAMBO Docusate Sodium (Docusate Sodium 100 Mg Capsule) 100 mg PO BID [facility] Last Admin: 11/05/23 09:24 Dose: Not Given Documented By: RAMBO Non-Admin Reason: Patient Refused Enoxaparin Sodium (Enoxaparin Sodium 40 Mg/0.4 Ml Syringe) 40 mg SUBCUT Q24H [facility] Last Admin: 11/04/23 22:57 Dose: 40 mg Documented By: CHRISTOPHER Fluticasone Propionate (Fluticasone Propionate Nasal 16 Gm [place]) 1 spray NOSTRIL-B DAILY [facility] Last Admin: 11/05/23 10:33 Dose: 1 spray Documented By: ALPHONSO Melatonin (Melatonin 3 Mg Tablet) 6 mg PO BEDTIME PRN PRN Reason: Insomnia Multivitamins/Vitamin C (Multivitamin Tablet) 1 tab PO DAILY [facility] Last Admin: 11/05/23 09:23 Dose: 1 tab Documented By: RAMBO Ondansetron HCl (Ondansetron Hcl 4 Mg/2 Ml Vial) 4 mg IVPUSH Q8H PRN PRN Reason: Nausea and Vomiting Senna (Sennosides 8.6 Mg Tablet) 17.2 mg PO BEDTIME PRN PRN Reason: Constipation Sodium Chloride (0.9 % Sodium Chloride Flush 3 Ml Syringe) 3 ml IVFLUSH QSHIFT [facility] Last Admin: 11/05/23 09:24 Dose: 3 ml Documented By: RAMBO Vitamin D (Cholecalciferol (Vitamin D3) 25 Mcg Tablet) 50 mcg PO DAILY [facility] Last Admin: 11/05/23 09:23 Dose: 50 mcg Documented By: RAMBO Labs 11/05/23 06:11 11/05/23 06:11 Labs: Laboratory Results - last 24 hr 11/04/23 11/05/23 20:57 06:11 MCV 88.2 MCH 29.7 MCHC 33.6 RDW 12.0 Plt Count 223 MPV 10.0 Absolute Nucleated RBC 0.000 Nucleated RBC % (auto) 0.0 Anion Gap 10 L Estim Creat Clear Calc 46.2 Estimated GFR > 60 Random Glucose 108 Calcium 8.7 Magnesium 1.9 Triglycerides 138 Cholesterol 201 H LDL Cholesterol, Calc 142 H HDL Cholesterol 32 L TSH 2.20 Urine Color Yellow Urine Appearance Clear Urine pH 6.5 Ur Specific [place] <= 1.005 Urine Protein Negative Urine Glucose (UA) Negative Urine Ketones 15 Urine Blood Negative Urine Nitrite Negative Ur Leukocyte Esterase Negative Assessment and Plan (1) Hypertensive encephalopathy: Status: Acute (2) Dizziness: Status: Acute Plan 78 year old white female with PMH of sclerosing mesenteritis, left breast cancer s/p lumpectomy, hypertension, endometriosis, 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 Hypertensive urgency--BP is better now, will avoid rapid correction, continue coreg, add Norvasc. 2. Dizziness--likely related to high BP, negative stroke by CT or MRI, Neuro recommends EEG 3. Unsteady gait, improved, negative as stated, PT recommends returning home with VNA DVT: SC Lovenox CODE STATUS: Full code Require hospitalization due to hypertensive urgency, accompanied by dizziness and an unsteady gait, necessitating acute monitoring for potential stroke risk. Quality Stroke Does the patient have a stroke diagnosis?: No VTE Prior VTE?: No VTE Risk Level:: Medical - moderate - high VTE Device Contraindication: N/A - Device Ordered VTE Drug Contraindication: N/A - Med Ordered
[2023-11-05 17:25] VITALS: BP 183/78; PULSE 63; RESP 16; O2SAT 99
[2023-11-05] MEDS: amLODIPine Besylate 2.5 MG TABLET PO (17:29)
--- NOTE | 2023-11-05 19:56 | PC.NURSE ---
Per primary RN, pt has been requesting to leave AMA for several hours. Hospitalist contacted by t/w, per hospitalist, plan to come discuss disposition with patient.
[2023-11-05 20:46] VITALS: BP 186/83; PULSE 65; RESP 18; O2SAT 98
--- NOTE | 2023-11-05 20:48 | PM.EVENT ---
Event Note Date of Service: 11/05/23 Event Note: Called by ED charge nurse that patient was anxious to leave. I reviewed the notes from today and note that an EEG was recommended. She informs me that she has had several EEG's and that she can follow up with her Neurologist for the same She currently feels fine with no additional complains. D/W Dr. Arrington who will discharge patient home this evening Spoke to ED charge nurse who will help organize for a way for the patient to get home. Time Spent With Patient Time: Total time managing care of this patient today __15__ minutes.
[2023-11-05] MEDS: carisoprodoL 350 MG TABLET PO (20:52)
--- NOTE | 2023-11-05 22:27 | P.DS_ITS ---
DS: Providers Provider Date of Service: 11/05/23 Date of admission: 11/04/23 21:04 Date of discharge: 11/05/23 Primary care physician: Unknown Physician Consults: 11/05/23 08:26 Consult to Neurology Routine Consulting Provider: [facility] Reason for consultation: ataxia, concner for stroke Has provider been notified: No DS: Diagnosis Discharge Diagnosis (1) Hypertensive encephalopathy: Status: Resolved (2) Dizziness: Status: Resolved DS: Summary Hospital Course Hospital Course: admission hpi Chief Complaint: Unsteady gait Patient is a 78 year old white female with PMH of sclerosing mesenteritis, breast cancer (lt) s/p lumpectomy, hypertension, endometriosis, 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 She reports having neck and back pain and feeling very dizzy when she turns her head. She also has an unsteady gait whereby she is unable to walk in a straight line stating that she woke up on 11/02/2023 feeling very off balance. She was not able to reach her PCP and so googled her symptoms and noted that they could be due to arthritis in her neck and so she called her 'arthritis doctor' who in turn referred her back to her PCP. When she still could not reach her PCP, she called her CCA who sent over someone and after evaluation, called an ambulance for her and had her come to the ED. She denies any falls, neck stiffness, headaches, fevers or chills. She has never had a stroke and is not a diabetic. Initial evaluation done in the ED was notable for significantly elevated BP at 21/98 mmHg though she reports compliance with her antihypertensive medications. Her blood work and CT head were largely normal. Admission was requested for an MRI to further evaluate for possible cerebellar infarct. Hospital course: Patient presented to the hospital with unsteady gait and accelerated HTN and fall. Dizziness was ikely related to high BP, negative stroke by CT or MRI, Neuro recommends EEG that could not be done until the next day, however the patient declined to have the EEG done and therefore I recommended the EEG be done on outpatient basis. 1. Hypertensive urgency--BP meds were being adjusted slowly to avoid rapid correction continue coreg,Nelly added and advised she will need further med adjustment by PcP Unsteady gait, improved, negative as stated, PT recommends returning home with VNA Essentially patient left against medical advise finall diagnoses: HTN emergency Dizziness Fall Time Attestation Discharge Coordination Time (in mins): 35 Quality: Safe Use of Opioids Does Pt have an Active Cancer Diagnosis on the Problem List?: No Quality: Stroke Does the patient have a stroke diagnosis?: No Physical Exam Vital Signs: Vital Signs: Last Vital Signs Temp 98.6 F 11/05/23 09:14 Pulse 65 11/05/23 20:46 Resp 18 11/05/23 20:46 BP 186/83 H 11/05/23 20:46 Pulse Ox 98 11/05/23 20:46 O2 Del Method Room Air 11/05/23 20:46 BMI result Body Mass Index 22.7 Discharge Plan Discharge Anticipated Discharge Date/Time: 11/05/23 20:34 Patient Disposition: Home Health Service Discharge Diagnosis: HTN urgency Referrals: Physician,Unknown J [Primary Care Provider] - 1 Week Discharge Medications: New amlodipine [Norvasc] 5 mg tablet 5 mg PO DAILY Qty: 30 0RF Continued multivitamin Tablet 1 tab PO DAILY carisoprodol 350 mg tablet 350 mg PO BEDTIME carvedilol 12.5 mg tablet 12.5 mg PO BID clonazepam 0.5 mg tablet 0.5 mg PO BID clonazepam 0.5 mg tablet 0.5 mg PO DAILY@1200 PRN (Reason: Anxiety) hydromorphone 2 mg tablet 2 mg PO BID PRN (Reason: Pain (Scale Score 7-10)) lansoprazole 30 mg Capsule,Delayed Release(Dr/Ec) 30 mg PO DAILY guanfacine 1 mg tablet 1 mg PO BID vitamin B complex Tablet 1 tab PO DAILY fluticasone propionate 50 mcg/actuation spray,suspension 1 spray intranasal DAILY cholecalciferol (vitamin D3) [Vitamin D3] 50 mcg (2,000 unit) capsule 50 mcg PO DAILY Discontinued diphenhydramine HCl [Banophen] 25 mg capsule 25 mg PO BID Discharge Orders: Discharge Order (Routine); Ordered 11/05/23 Ordered By: Giacomo Arrington Diet: Advance to usual diet Activity on Discharge: As tolerated Stand Alone Forms: Patient Portal Discharge page Print Language: [place] Care Plan Goals: Prevent stroke, prevent fall from dizziness and control blood pressure Health Concerns: Uncontrolled high blood pressure dizziness and fall Plan of Treatment: Take all your blood pressure medication as directed, Please go see your doctor within a week, call for appointment, you may neef further adjustment in blood pressure medication you understand you were advised to stay until tomorrow and get eeg done but you declined this Your medication were sent to the [facility] Assessment: See above Discharge Date/Time: 11/05/23 21:37
[2023-11-09 23:53] LABS: A. Phagocytphilium DNA,RT-PCR NOT DETECTED (NOT DETECTED); Babesia Microti DNA, RT-PCR NOT DETECTED (NOT DETECTED); Borrelia Miyamotoi,DNA RT-PCR NOT DETECTED (NOT DETECTED); E.Chaffeensis DNA RT-PCR NOT DETECTED (NOT DETECTED); Lyme(Borrelia ssp)DNA RT-PCR NOT DETECTED (NOT DETECTED)
== END 2023-11-05 21:37 | disposition home health service (06) | DRG 305 ==
LOC: HO.ED 19:43 → HO.EDOVER 22:05 → HO.IMC 11-05 14:01 → HO.EDOVER 11-05 14:39
PROVIDERS: Physician Assistant Medical; Admitting Provider Internal Medicine; Emergency Provider Emergency Medicine Emergency Medical Services; Visit Provider Internal Medicine
DX: I16.0 Hypertensive urgency (principal); I67.4 Hypertensive encephalopathy; J45.909 Unspecified asthma, uncomplicated; C50.912 Malignant neoplasm of unspecified site of left female breast; M06.9 Rheumatoid arthritis, unspecified; Z20.822 Contact with and (suspected) exposure to COVID-19; Z87.891 Personal history of nicotine dependence; Z79.899 Other long term (current) drug therapy
CPT/HCPCS: 0241U; 36415; 70450; 70551; 80048; 80053; 80061; 81003; 83735; 84443; 84484; 85025; 85027; 85610; 85730; 87468; 87469; 87478; 87484; 87798; 93005; 97161; 97165; 99222; 99285; J1650

== ENCOUNTER → 2023-11-04 14:38 | Outpatient (BNV) | payer MEDICARE, MEDICAID, SELFPAY | PROVIDERS: Emergency Provider Emergency Medicine Emergency Medical Services; Visit Provider Internal Medicine | DX: R26.81 Unsteadiness on feet (principal); I10 Essential (primary) hypertension | CPT/HCPCS: 93010 ==

== ENCOUNTER → 2023-11-04 21:04 | Outpatient (BNV) | payer MEDICARE, MEDICAID, SELFPAY | PROVIDERS: Admitting Provider Internal Medicine; Emergency Provider Emergency Medicine Emergency Medical Services; Visit Provider Internal Medicine | DX: I67.4 Hypertensive encephalopathy (principal); R42 Dizziness and giddiness | CPT/HCPCS: 99223; 99232; 99499 ==

== ENCOUNTER 2023-12-22 06:29 | Outpatient (REF) | payer OTHER, SELFPAY ==
--- NOTE | 2023-12-22 06:38 | EEG_ITS ---
FINDINGS: The waking background activity consists of a low to moderate voltage 8 hertz posterior alpha frequency intermixed with low voltage fast frequencies anteriorly. Throughout the record, intermittent theta slowing with occasional sharp configuration is seen from the temporal regions bilaterally where the left sided predominance. Photic stimulation is without activation. Hyperventilation was omitted. IMPRESSION: This EEG is considered mildly abnormal due to bitemporal slowing, left greater than right, with some sharp configuration waves suggesting bilateral temporal dysfunction where it is possible seizure potential in the left hemisphere. Clinical correlation is suggested. MD ED Gandara/MARIANO / [phone]
== END 2023-12-22 06:30 | disposition home or self-care (01) ==
LOC: HO.NEURO 06:29
PROVIDERS: Visit Provider Family Medicine
DX: R41.82 Altered mental status, unspecified (principal)
CPT/HCPCS: 95819

== ENCOUNTER 2024-03-02 14:43 | Outpatient (REF) | payer OTHER, SELFPAY ==
--- NOTE | ~2024-03-02 | MM_ITS ---
EXAMINATION: MM SCREENING DIGITAL BREAST TOMOSYNTHESIS, BILATERAL CLINICAL INFORMATION: Screening. Asymptomatic. Patient is status post left breast conservation for cancer. COMPARISON: Mammography: This study is compared with prior exams dating back to 2018. TECHNIQUE: Digital breast tomosynthesis is performed in both the craniocaudal and mediolateral oblique views along with computer-aided detection (CAD). Synthesized 2D images are generated from the tomosynthesis. FINDINGS: There are scattered areas of fibroglandular density (ACR BI-RADS breast composition Category b). There are no significant masses, abnormal calcifications, or other abnormalities. There are architectural changes in the upper outer quadrant of the deep third of the left breast from prior cancer surgery. There are also surgical clips in left axilla from prior left axillary node sampling. MM/MM tomosynthesis screening BI IMPRESSION: No mammographic evidence of malignancy. ASSESSMENT: BI-RADS BI-RADS 2 - Benign Findings RECOMMENDATION: Routine annual mammography screening. 1 year F/U This examination should not preclude the clinical evaluation of a suspicious palpable abnormality. This patient's information was entered into a reminder system with a target due date for their next mammogram.
== END 2024-03-02 14:44 | disposition home or self-care (01) ==
LOC: HO.MAMMO 14:43
PROVIDERS: PCP Family Medicine; Visit Provider Family Medicine
DX: Z12.31 Encounter for screening mammogram for malignant neoplasm of breast (principal)
CPT/HCPCS: 77063; 77067

== ENCOUNTER → 2024-03-02 15:00 | Outpatient (BNV) | payer OTHER, SELFPAY | PROVIDERS: PCP Family Medicine; Visit Provider Radiology Diagnostic Radiology | DX: Z12.31 Encounter for screening mammogram for malignant neoplasm of breast (principal) | CPT/HCPCS: 77063; 77067 ==

== ENCOUNTER 2025-07-25 21:19 | Emergency (ER) | payer OTHER, SELFPAY ==
--- NOTE | 2025-07-25 | ECG_ITS ---
Test Reason : SYNCOPY Blood Pressure : */* mmHG Vent. Rate : 64 BPM Atrial Rate : 64 BPM P-R Int : 180 ms QRS Dur : 74 ms QT Int : 408 ms P-R-T Axes : 48 16 31 degrees QTcB Int : 420 ms Normal sinus rhythm Septal infarct , age undetermined Abnormal ECG When compared with ECG of 04-Nov-2023 14:59, Septal infarct is now Present Referred By: Generic ED Physician Electronically Signed By: DARRYL VILLASEÑOR
--- NOTE | ~2025-07-25 | CT_ITS ---
CLINICAL HISTORY: RUQ pain CT abdomen and pelvis without contrast Comparison: None provided Findings: There is a small hiatal hernia. There is calcification of the mitral valve. 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 The gallbladder and the rest of the solid organs are unremarkable. No bowel obstruction, pneumoperitoneum, or pneumatosis. There is a relatively large stool burden particularly in the right colon suggesting constipation. 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 There is mild colonic diverticulosis. There is no evidence of diverticulitis. The appendix is not identified. There is no evidence of appendicitis. The patient is status post hysterectomy. The bones are intact. IMPRESSION: 1. There is a relatively large stool burden particularly in the right colon suggesting constipation. 2. Mesenteric panniculitis. 3. Mild colonic diverticulosis. 4. Small hiatal hernia. This document has been electronically signed by: Gianni Maharaj MD on 07/26/2025 05:55:05
[2025-07-25 21:31] VITALS: BP 120/70; PULSE 60; O2SAT 100; BMI 25.1
[2025-07-25 22:15] LABS: MANUAL DIFF FLAG NO
[2025-07-25 22:18] VITALS: BP 127/50; BP 129/62; PULSE 64; PULSE 65
[2025-07-25 22:19] VITALS: BP 130/55; PULSE 67
[2025-07-25 22:32] LABS: Anion Gap 13 (12-20); Blood Urea Nitrogen 27 mg/dL (9-16); Calcium 9.2 mg/dL (8.4-10.2); Carbon Dioxide 29 mmol/L (22-29); Chloride 99 mmol/L (96-108); Creatinine Clr Calc Pharmacy 27.5; Estimated Glomerular Filt Rate 42; Potassium 4.7 mmol/L (3.3-5.1); Sodium 136 mmol/L (135-145)
--- OUTSIDE RECORDS SUMMARY | 2025-07-25 22:34 | XMS_ITS | Encounter Summary ---
Author Organization [facility] Address [address] [place] [address] Phone Care Team Providers Care Road Roller Operator Hot Mix Name Role Phone Soraya Mcdonough Unavailable Vitor Biggs MD Unavailable [phone] Fabiola Gilbert CNM Unavailable Abeba Chacon METAL PUNCH PRESS OPERATOR Unavailable Andrews Cervantes MD Unavailable Aditi Bowers MD Unavailable Edda Sim METAL PUNCH PRESS OPERATOR Unavailable Alta Weaver MD Unavailable [phone] Lukas Dawkins SOURCE WATER PROTECTION SPECIALIST Unavailable [phone] Vitor Biggs MD Primary Care Provider [phone] Vitor Biggs MD Primary Care Provider [phone] Encounter Details Date Type Department Care Team (Late st Contact Info) Description 08/27/2021 Procedure Pass [facility], [facility] [address] [place] [address] Social History Tobacco Use Types Packs/Day Years Used Date Smoking Tobacco: Never Smokeless Tobacco: Never Alcohol Use Standard Drinks/Week Comments Yes 0 (1 standard drink = 0.6 oz pur e alcohol) rarely Comments No Sex and Gender Information Value Date Recorded Sex Assigned at Female 08/27/2021 11:33 AM EDT Legal Sex Female 10:07 PM EDT Gender Identity Not on file Sexual Orientation Not on file documented as of this encounter Functional Status * Calculated C-SSRS Risk Score (Lifetime/Recent) Answer Date of Assessment Author No Risk Indicated 08/27/2021 11:32 AM EDT Sapna Sewell RN * [place] Suicide Severity Rating Scale (Screener/Recent Self-Report) Question Answer Date of Assessment Author 1. Wish to be (Past 1 Month) No 021 11:32 AM EDT Sapna Rdz RN 2. Non-Specific Active Suici kiesha Thoughts (Past 1 Month) No 08/27/2021 11:32 AM EDT Roseanna Rdz RN 6. Suicidal Behavior (Lifetime) No 11:32 AM EDT Sapna Rdz RN documented as of this encounter Plan of Treatment Upcoming Encounters Date Type Department Care Team (Late st Contact Info) Description 09/15/2025 10:30 AM EDT Office Visit [facility] [address] [place] [address] [address]rd [facility], [address] [place] [id number] Jet Lnyn DO [address] [place] [address] [place] [id number] [email or web address] documented as of this encounter Visit Diagnoses Not on filedocumented in this encounter Care Teams Road Roller Operator Hot Mix Relationship Specialty Start Date End Date Vitor Biggs MD [address] [place] [address] PCP - General Family Medicine 07/17/21 09/12/24 Vitor Biggs MD [address] [place] [address] PCP - General Family Medicine 09/13/24 Soraya Mcdonough DO [address] [place] [address] [email or web address] Historical LMR Provider 09/19/17 12/07/21 Vitor Biggs MD [address] [place] [address] [email or web address] Primary Care Physician 09/19/17 Fabiola Gilbert CNM [address] [place] [address] Historical LMR Provider 09/19/17 2 Abeba Chacon NP [address] [place] [address] Historical LMR Provider 09/19/17 2 Andrews Cervantes MD [address] [address] [email or web address] Historical LMR Provider 09/19/17 Aditi Bowers MD [address] [place] [address] Historical LMR Provider 09/19/17 2 Edda Sim METAL PUNCH PRESS OPERATOR [address] [place] [phone] Historical LMR Provider 09/19/17 2 Alta Weaver MD [address] [place] [address] Historical LMR Provider 09/19/17 Lukas Dawkins, SOURCE WATER PROTECTION SPECIALIST [address] [address] [email or web address] Historical LMR Provider 09/19/17 12/07/21 documented as of this encounter Additional Source Comments The information contained in this document represents components of the legal health record. It is not the complete legal health record.[facility]
--- OUTSIDE RECORDS SUMMARY | 2025-07-25 22:34 | XMS_ITS | Encounter Summary ---
Author Organization [facility] Address [address] [place] [address] Encounters * CPT with Medical [facility] at [email or web address] on 2025-07-06 3:36pm ??? MBR contacts the CRU directly to report feeling unwell and requests an [facility] in-home visit today. CHACHA is a 80 y/o female with a PMH of, but not limited to: anxiety/depression/PTSD, HTN, GERD, KIMBERLY, HLD, sclerosing mesenteric fibrosis, fibromyalgia, TIA, and hx of breast CA. CHACHA reports that she has been feeling extremely weak and fatigued for the past two weeks. Over the past few days she has developed a decreased appetite, fevers of 99-100 degrees, a sore throat with swollen glands and a mild dry cough, and body aches. CHACHA denies CP, SOB, abdominal pain, N/V/D, difficulties urinating, sinus pain, earaches, or any other symptoms. CHACHA is mildly weak- and ill-sounding to this group underwriter. She is AOx4, hyperverbal, and mildly anxious during this call. She is fixated on covid swabs she has in her home and wonders where she can get new ones. CHACHA would appreciate an [facility] in-home visit for assessment and treatment of her symptoms. After confirming MBRs address and phone number on file, this [facility] RN assures MBR that a referral will be placed on her behalf. MBR is strongly advi sed to call 911 for any new or worsening symptoms. MBR verbalizes understanding and will do so. This call originated from [phone]. { reasonForRequest : Cough and fever , patientReports : ,&q uot;denies :[], chiefComplaints : Cough, Fever, Headache, Sore Throat, Weakness& quot;, pmh : Hypertension, Severe Persistent Mental Illness (SPMI), Anxiety Disorder, Chronic Back Pain, Fibromyalgia, Chronic Pain, Depression, Gastroesophageal Reflux Disease (GERD),Post-Traumatic Stress Disorder (PTSD), Sleep Apnea, Transient Ischemic Attack (TIA) , allergies : Penicillins, Epinephrine, Codeine, Iodine, Percocet, Oxycodone, Nitrofurantoin, Tetracycline, Zoloft , otherAllergies :null, painAssessment : ,&qu ot;visitOutcome : , additionalComments : Reviewed } instED visit for female pt with multiple complaints. Pt requested visit today due to fatigue, sore throat, low grade fever and other symptoms. Pt uncertain of duration but believed to be about 10 days. No known sick contacts. Pt voiced concern for possible COVID or depression as cause of her symptoms. Pt presents appearing well in no obvious distress. Pt reported above symptoms speaking in full sentences with no evidence of shortness of breath. Pt added concern about possible loss of taste and poor appetite. V/S taken as listed. Pt afebrile having taken some tylenol earlier. Low grade fevers reported of 99-100 with baseline temp reported to be 96-97 F. Lungs clear bilaterally. Pt swabbed for flu and covid and found to be negative. Consulted with [facility] Dr. Chanel who ordered a send out strep swabobtained and brought to [facility]. Pt told to monitor symptoms and follow up with PCP for additional diagnostics. Reviewed red flags. Pt education provided. IV_(FLUIDS_AND/OR_MEDICATION), MEDICATION_IM, ORAL_MEDICATION, EKG, POC_FLU_STREP, COVID_TEST, WOUND_CARE Written by Medical [facility] on 2025-07-06
--- OUTSIDE RECORDS SUMMARY | 2025-07-25 22:34 | XMS_ITS | Clinical Summary ---
Author Organization [facility] Address [address] [place] [address] Phone Care Team Providers Care Clinical Advisor Name Role Phone Vitor Biggs MD Unavailable [phone] Andrews Cervantes MD Unavailable Vitor Biggs MD Primary Care Provider [phone] Allergies Active Allergy Reactions Criticality Noted Date Comments Codeine 12/07/2017 Epinephrine 12/07/2017 Iodine 12/07/2017 Penicillins 12/07/2017 Oxycodone-Acetaminophen 02/11/2024 Nightmares Sulfa (Sulfonamide Antibiotics) 06/2018 Medications aspirin 81 MG EC tablet Take 81 mg by mouth daily. Active carvedilol (COREG) 12.5 MG tablet Take 12.5 mg by mouth 2 (two) times a day. Active clonazePAM (KLONOPIN) 0.5 MG tablet Take 0.5 mg by mouth 4 (four) times a day as needed for anxiety. Active guanFACINE (TENEX) 1 MG tablet Take 1 mg by mouth 2 (two) times a day. Active HYDROmorphone (DILAUDID) 2 MG tablet Take 2 mg by mouth 2 (two) times a day as needed. PRN Active carisoprodol (SOMA) 350 MG tablet Take 350 mg by mouth 2 (two) times a day as needed for spasm. PRN Active magnesium 250 mg TabIndications:un sure strength Take 250 mg by mouth daily. Indications: unsure strength Active therapeutic multivitamin tablet Take 1 tablet by mouth daily. Active acetaminophen (TYLENOL) 500 MG tablet Take 500 mg by mouth every 6 (six) hours as needed for pain (specific location in comments). Active calcium carbonate-vitamin D3 1,250 mg (500 mg elemental)-400 units per tablet 2 Active lansoprazole (PREVACID) 15 MG capsule Take 15 mg by mouth daily. 2 Active amLODIPine (NORVASC) 2.5 MG tablet Take 2.5 mg by mouth daily. 4 Active cholecalciferol (VITAMIN D3) 2,000 unit capsule Take 2,000 Units by mouth daily. Active loratadine (CLARITIN) 10 mg tablet Take 10 mg by mouth daily. Active Active Problems Problem Noted Date Diagnosed Date Chronically on opiate therapy 02/11/2024 Assessment & Plan (02/11/2024 1:13 PM EDT): Take exactly as prescribed, try to limit frequency by employing non-for pharmacologic measures such as topical creams, warm packs, patches, regular relaxation/mediation/positive imagery sessions etc. Build up regular exercise routine up to the goal of 30-45 minutes daily. Monitor for increasing shortness of breath, reduced respiratory drive, increasing constipation Rheumatoid factor positive 02/11/2024 Assessment & Plan (02/14/2024 2:36 PM EDT): Even though rheumatoid factor returned [place] [facility] [place] she clinically does not exhibit signs of rheumatoid arthritis but rather diffuse osteoarthritis. To make sure that there are no signs of inflammatory arthritis I also requested new set of x-rays of her hands and feet. Provided lab work is reassuring and x-rays free of signs of inflammatory arthritis I asking her to return in 6 months. Primary osteoarthritis involving multiple joints 11/27/2021 Assessment & Plan (02/11/2024 1:15 PM EDT): Joint protection, energy conservation. Gentle, regular exercise routine examples of exercises with pictures and detailed instructions printed for home use today to continue daily after warm pack or warm shower. Avoid falls, injuries, overuse. Keep body weight in ideal range for her height. She may benefit from topical cream such as Arnica, Biofreeze, Aspercreme versus medicated patches such as salonpas, icy hot patch 2-3 times daily and if necessary at bedtime x 3 weeks. May consider intra-articular Synvisc injection since it worked prior to 2014. Assessment & Plan (07/08/2022 9:33 AM EDT): Joint protection, energy conservation. Gentle, regular exercise routine examples of exercises with pictures and detailed instructions printed for home use today to continue daily after warm pack or warm shower. Avoid falls, injuries, overuse. Keep body weight in ideal range for her height. She may benefit from topical cream such as Arnica, Biofreeze, Aspercreme versus medicated patches such as salonpas, icy hot patch 2-3 times daily and if necessary at bedtime x 3 weeks. May consider intra-articular Synvisc injection since it worked prior to 2014. Assessment & Plan (11/27/2021 11:03 AM EST): Joint protection, energy conservation. Gentle, regular exercise routine. Avoid falls, injuries, overuse. Keep body weight in ideal range for his height. He may benefit from topical cream such as Arnica, Biofreeze, Aspercreme versus medicated patches such as salonpas, icy hot patch 2-3 times daily and if necessary at bedtime x 3 weeks. Fibromyalgia 11/27/2021 Assessment & Plan (02/14/2024 2:33 PM EDT): We discussed the diagnosis of fibromyalgia, its natural history, and treatment. Specifically, we discussed that treatment requires many interventions and recognition that we are often unable to get patients completely pain free. Management of fibromyalgia requires patient engagement to address any underlying depression, anxiety, or sleep disorder. Further, patients are encouraged to engage in regular physical activity. Some studies have suggested that Justin Chi is effective. Other physical activity may including water-based aerobics, walking, biking, swimming, gentle yoga, Pilates etc. In terms of pharmacotherapy, there are many options, including tricyclic antidepressants, duloxetine, gabapentin or pregabalin, and cyclobenzaprine as well as other similar medications to those listed. In this case, the patient might try nonpharmacologic measures first due to medication sensitivity. She would benefit from using mindfulness approach as described in the book written by Dr Raji Amaya [facility] Another useful resource may be book by Dr. Sujey Jones Managing pain before it manages you Assessment & Plan (06/23/2022 10:08 AM EDT): We discussed the diagnosis of fibromyalgia, its natural history, and treatment. Specifically, we discussed that treatment requires many interventions and recognition that we are often unable to get patients completely pain free. Management of fibromyalgia requires patient engagement to address any underlying depression, anxiety, or sleep disorder. Further, patients are encouraged to engage in regular physical activity. Some studies have suggested that Justin Chi is effective. Other physical activity may including water-based aerobics, walking, biking, swimming, gentle yoga, Pilates etc. In terms of pharmacotherapy, there are many options, including tricyclic antidepressants, duloxetine, gabapentin or pregabalin, and cyclobenzaprine as well as other similar medications to those listed. In this case, the patient might try nonpharmacologic measures first due to medication sensitivity. She would benefit from using mindfulness approach as described in the book written by Dr Raji Barrios [facility] Assessment & Plan (11/27/2021 11:04 AM EST): We discussed the diagnosis of fibromyalgia, its natural history, and treatment. Specifically, we discussed that treatment requires many interventions and recognition that we are often unable to get patients completely pain free. Management of fibromyalgia requires patient engagement to address any underlying depression, anxiety, or sleep disorder. Further, patients are encouraged to engage in regular physical activity. Some studies have suggested that Justin Chi is effective. Other physical activity may including water-based aerobics, walking, biking, swimming, gentle yoga, Pilates etc. In terms of pharmacotherapy, there are many options, including tricyclic antidepressants, duloxetine, gabapentin or pregabalin, and cyclobenzaprine as well as other similar medications to those listed. In this case, the patient might try nonpharmacologic measures first due to medication sensitivity. She would benefit from using mindfulness approach as described in the book written by Dr Raji Kabat- Mon[facility] Vitamin D insufficiency 11/27/2021 Assessment & Plan (02/11/2024 1:15 PM EDT): Carefully continue vitamin D supplementation to keep serum level in optimal range: 40-45 ng/ml. Assessment & Plan (06/23/2022 10:09 AM EDT): Carefully continue vitamin D supplementation to keep serum level in optimal range: 40-45 ng/ml. Assessment & Plan (11/27/2021 11:04 AM EST): Carefully continue vitamin D supplementation to keep serum level in optimal range: 40-45 ng/ml. Weight loss 11/27/2021 Aspirin long-term use 11/27/2021 Assessment & Plan (02/11/2024 1:14 PM EDT): Avoid falls, injuries and cuts. Monitor for excessive bruising and bleeding. Assessment & Plan (06/23/2022 10:07 AM EDT): Avoid falls, injuries and cuts. Monitor for excessive bruising and bleeding. Assessment & Plan (11/27/2021 11:03 AM EST): Avoid falls, injuries and cuts. Monitor for excessive bruising and bleeding. Trigger middle finger of left hand 11/27/2021 Assessment & Plan (06/23/2022 10:06 AM EDT): Use moisturizer or baby oil along flexor tendon sheath starting from proximal crease and massage gently in a circular spiral motion aiming toward distal portion of the finger after applying warm pack. Gentle, regular stretching. Avoid repetitive overuse. May need to consider local steroid injection if not better or worse despite above measures. Assessment & Plan (12/08/2021 10:51 AM EST): Use moisturizer or baby oil along flexor tendon sheath starting from proximal crease and massage gently in a circular spiral motion aiming toward distal portion of the finger after applying warm pack. Gentle, regular stretching. Avoid repetitive overuse. May need to consider local steroid injection if not better or worse despite above measures. Acute bilateral low back pain without sciatica 0 08/27/2021 Assessment & Plan (08/27/2021 4:43 PM EDT): Status post fall last Thursday. Patient states that she fell backwards and onto her right side. She initially thought she had broken her hip but was able to get up. Since then she has been complaining of lower back pain into her pelvis and hips bilaterally. She also noted some paresthesias down her legs bilaterally. Although her strength is intact 4 out of 5 bilateral. She does have decreased sensation on her right greater than left. -We will obtain a lumbar x-ray -We will obtain bilateral hip/pelvis x-rays -Provide pain control with Dilaudid and Tylenol as needed -PT/OT Arthritis 08/27/2021 Assessment & Plan (08/27/2021 4:29 PM EDT): Follows with rheum for multiple areas of arthritis including her hips, neck and hands. 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 Proper hydration. Balance rest and activity. Continue regular meditation and mindfulness strategies. Call if questions or problems otherwise return in 6 months. Assessment & Plan (07/08/2022 9:31 AM EDT): Continue well-balanced nutritionally diet and smaller, more frequent and regular meals throughout the day. Proper hydration. Balance rest and activity. Continue regular meditation and mindfulness strategies. Call if questions or problems otherwise return in 6 months. Assessment & Plan (11/27/2021 11:03 AM EST): Continue well-balanced nutritionally diet. Proper hydration. Balance rest and activity. Call if questions or problems otherwise return in 6 months. Assessment & Plan (08/27/2021 4:28 PM EDT): Follows with Richa MENJIVAR. She states she takes dilaudid for pain as needed and Creon. Continue dilaudid prn Continue creon tid Primary hypertension 08/27/2021 Assessment & Plan (08/27/2021 4:55 PM EDT): Continue Coreg 12.5 mg p.o. twice daily with holding parameters (lowering permissive hypertension for the first 24 hours or until MRI is returned.) Continue Tenex 1 mg p.o. twice daily Neck pain 12/07/2017 Assessment & Plan (08/27/2021 4:45 PM EDT): Patient with a history of neck pain which precipitates headaches. She is maintained on Dilaudid as well as Soma. She follows with her PCP as well as rheumatology. She states that she has been having some difficulty with her neck most recently however after her fall last Thursday her neck pain has progressively become worse and she has restarted on her Dilaudid daily as well as her somas. Ct cervical spine revealed no acute fracture or traumatic malalignment involving the cervical spine. -Continue Dilaudid daily as needed (MassPat verified with last prescription given on 08/08/2021) -Continue Soma 350 mg as needed -PT/OT Resolved Problems Problem Noted Date Diagnosed Date Resolved Date Dizziness 08/27/2021 08/28/2021 Assessment & Plan (08/27/2021 4:40 PM EDT): Patient noted to have dizziness however normal neuro exam. She denies any slurred speech or weakness of her upper or lower extremities. No nystagmus. No pronator drift Head CT obtained no acute intracranial abnormality. -We will obtain MRI brain to rule out CVA -Echocardiogram -Lipid panel -Hemoglobin A1c -Speech/swallow eval -PT/OT eval -Aspirin 81 mg p.o. daily -Lipitor 80 mg p.o. daily -We will place holding parameters on her Coreg to allow for permissive hypertension for 24 hours or until MRI is resulted. Class 1 obesity due to exces s calories without serious comorbidity with body mass index (BMI) of 30.0 to 30.9 in adult 07/26/2018 Family History Medical History Relation Comments Cancer Mother 2 CV disease Sibling 2 Relation Status Comments Mother 1 Mother 2 Sibling 1 Sibling 2 Social History Tobacco Use Types Packs/Day Years Used Date Smoking Tobacco: Never Smokeless Tobacco: Never Alcohol Use Standard Drinks/Week Comments Yes 0 (1 standard drink = 0.6 oz pur e alcohol) rarely Education Answer Date Recorded Are you interested in more education? Not on liliana e 03/27/2023 Are you concerned about learning? Not on file 03/27/2023 No 03/27/2023 No 03/27/2023 Digital Access Answer Date Recorded No 04/25/2023 No 04/25/2023 Reliable internet access at home? Not on file 04/25/2023 Device with a working camera? Not on file Intimate Partner Violence Answer Date R ecorded Are you denied basic needs s uch as food, clothing, or medical care? No 06/22/2023 In the past 12 months have y ou been in a relationship with a person who hurts, threatens, or tries to control you? No 06/22/2023 Are you denied basic needs s uch as food, clothing, or medical care? No 06/22/2023 In the past 12 months have y ou been in a relationship with a person who hurts, threatens, or tries to control you? No 06/22/2023 Comments No Sex and Gender Information Value Date Recorded Sex Assigned at Female 08/27/2021 11:33 AM EDT Legal Sex Female 10:07 PM EDT Gender Identity Not on file Sexual Orientation Not on file Last Filed Vital Signs Vital Sign Reading Time Taken Comments Blood Pressure 120/64 02/11/2024 1:02 PM EDT Pulse 99 02/11/2024 1:02 PM EDT Temperature 36.4 C (97.5 F) 06/22/2023 12:01 PM EDT Respiratory Rate 18 06/22/2023 11:00 PM EDT Oxygen Saturation 61% 02/11/2024 1:02 PM EDT Inhaled Oxygen Concentration - - Weight 51.7 kg (114 lb) 02/11/2024 1:02 PM EDT Height 147.3 cm (4' 10 ) 02/11/2024 1:02 PM EDT Body Mass Index 23.83 02/11/2024 1:02 PM EDT Plan of Treatment Upcoming Encounters Date Type Department Care Team (Late st Contact Info) Description 09/15/2025 10:30 AM EDT Office Visit [facility] [address] [facility] 3rd Floor, [address] [place] [address] Jet Lynn DO [address] [facility] [address] [place] [id number] [email or web address] Health Maintenance Due Date Last Done Comments DEPRESSION SCREENING 1959 HEPATITIS C SCREENING 1965 PNEUMOCOCCAL VACCINES (50+ years) (1 of 1 - PCV) 1997 ZOSTER VACCINES (1 of 2) 1997 OSTEOPOROSIS SCREENING INITI AL (ONE-TIME) 02/03/2012 Adult Td,Tdap Booster 09/25/2018 09/25/2008 RSV VACCINE (1 - 1-dose 75+ series) 2022 COVID-19 VACCINE (4 - 2023-2 5 season) 2024 02/20/2022, 05/09/2021, 04/18/2021 BLOOD PRESSURE 08/13/2024 02/11/2024 LIPID PANEL 08/28/2026 08/28/2021 SMOKING STATUS SCREENING (On ce After 26 Yrs) Completed 02/11/2024 HEPATITIS A VACCINES Aged Out No long er eligible based on patient's age to complete this topic HIB VACCINES Aged Out No longer eligi ble based on patient's age to complete this topic MENINGOCOCCAL VACCINES (ACWY) Aged Out No longer eligible based on patient's age to complete this topic MENINGOCOCCAL VACCINES (B) Aged Out N o longer eligible based on patient's age to complete this topic Medical Devices Not on file Procedures Procedure Name Priority Date/Time Associated Diagnosis Comments LIPID PANEL Routine 08/28/2021 5:24 AM EDT from Last 3 Months or Most Recently Relevant to Health Maintenance Results * (ABNORMAL) Lipid panel (08/28/2021 5:24 AM EDT) HDL 30 mg/dL [facility] Comment: Interpretation <40 mg/dL: Low HDL cholesterol (major risk factor for CHD) Greater than or equal to 60 mg/dL: High HDL cholesterol ( negative risk factor for CHD) HDL - cholesterol is affected by a number of factors, e.g. smoking, excerise, hormones, sex and age. CHOLESTEROL 199 0 - 240 mg/dL [facility] TRIGLYCERIDES 153 30 - 160 mg/dL [facility] LDL 138(H) 50 - 129 mg/dL [facility] Comment: LDL levels in terms of risk for coronary heart disease: <100 mg/dL: Optimal 100-129 mg/dL: Near or above optimal 130-159 mg/dL: Borderline high 160-189 mg/dL: High >190 mg/dL: Very High CARDIAC RISK RATIO 6.6(H) 3.3 - 4.4 C [facility] Blood 08/28/2021 5:24 AM EDT 08/28/2021 6:42 AM EDT us Hector Cuevas PA-C LAB BLOOD [place]AB[place] [address] from Last 3 Months or Most Recently Relevant to Health Maintenance Insurance MEDIC[place] [address] [place] [address] MEDICARE REPLACEMENT O MEDICARE REPLACEMENT MEDICARE REPLACEMENT MEDICARE [place] [id number] [place] [address] MEDICARE REPLACEMENT [employer] MEDICARE REPLACEMENT Advance Directives For more information, please contact: [phone] (9AM - 5PM [facility], Thursday-Thursday) * Full Code (Latest Code Status on File) Date Activated Date Inactivated Comments 08/27/2021 6:38 PM Question Answer Comments Code Status Confirmed With: Patient Care Teams Clinical Advisor Relationship Specialty Start Date End Date Vitor Biggs MD [address] [place] [id number] PCP - General Family Medicine 09/13/24 Vitor Biggs MD Primary Care Physician 09/19/17 Andrews Cervantes MD [address] [place] [address] [address] [place] [address] Historical LMR Provider 09/19/17 Additional Source Comments The information contained in this document represents components of the legal health record. It is not the complete legal health record.[facility]
--- OUTSIDE RECORDS SUMMARY | 2025-07-25 22:34 | XMS_ITS | Encounter Summary ---
Author Organization [facility] Address [address] [facility] [address] [place] [address] Phone Care Team Providers Care Warehouse Supervisor 3Rd Shift Name Role Phone Soraya Mcdonough Unavailable Vitor Biggs MD Unavailable [phone] Fabiola Gilbert CNM Unavailable Abeba Chacon MANAGER RESOURCE Unavailable Andrews Cervantes MD Unavailable Aditi Bowers MD Unavailable Edda Sim MANAGER RESOURCE Unavailable Alta Weaver MD Unavailable [phone] Lukas Dawkins RADIO CONTROL CRANE OPERATOR Unavailable [phone] Vitor Biggs MD Primary Care Provider [phone] Vitor Biggs MD Primary Care Provider [phone] Encounter Details Date Type Department Care Team (Late st Contact Info) Description 08/27/2021 Procedure Pass [facility] [address] [place], [place] [id number] Social History Tobacco Use Types Packs/Day Years [...] 11:32 AM EDT Sapna Sewell RN * [place] Suicide Severity Rating Scale (Screener/Recent Self-Report) Question [...] Description 09/15/2025 10:30 AM EDT Office Visit [facility] [address] [place] [address], [address] [place] [phone] Jet Lynn DO [address] [place] [id number] [email or web address] documented as of this encounter Visit Diagnoses Not on filedocumented in this encounter Care Teams Warehouse Supervisor 3Rd Shift Relationship Specialty Start Date End Date Vitor Biggs MD [address] [place] [address] PCP - General Family Medicine 07/17/21 09/12/24 Vitor Biggs MD [address] [place] [address] PCP - General Family Medicine 09/13/24 Soraya Mcdonough DO [address] [place] [address] [email or web address] Historical LMR Provider 09/19/17 12/07/21 Vitor Biggs MD [address] [place] [address] [email or web address] Primary Care Physician 09/19/17 Fabiola Gilbert CNM [address] [place] [address] Historical LMR Provider 09/19/17 2 Abeba Chacon NP [address] [place] [id number] Historical LMR Provider 09/19/17 2 Andrews Cervantes MD [address] [address] [email or web address] Historical LMR Provider 09/19/17 Aditi Bowers MD [address] [place] [address] Historical LMR Provider 09/19/17 2 Edda Sim MANAGER RESOURCE [address] [place] [phone] Historical LMR Provider 09/19/17 2 Alta Weaver MD [address] [place] [address] Historical LMR Provider 09/19/17 Lukas Dawkins, RADIO CONTROL CRANE OPERATOR [address] [facility], [address] [place] [address] Historical LMR Provider 09/19/17 12/07/21 documented as of this encounter Additional Source Comments The information contained in this document represents components of the legal health record. It is not the complete legal health record.[facility]
--- OUTSIDE RECORDS SUMMARY | 2025-07-25 22:34 | XMS_ITS | Encounter Summary ---
Author Organization [facility] Address [address] [facility] [address] [place] [address] Phone Care Team Providers Care Plate Former Name Role Phone Soraya Mcdonough DO Unavailable Vitor Biggs MD Unavailable [phone] Fabiola Gilbert CNM Unavailable Abeba Chacon AFTER SCHOOL PROGRAM DIRECTOR Unavailable [phone] Andrews Cervantes MD Unavailable Aditi Bowers MD Unavailable Edda Sim AFTER SCHOOL PROGRAM DIRECTOR Unavailable Alta Weaver MD Unavailable [phone] Lukas Dawkins HEALTH PRACTICE MANAGER Unavailable [phone] Vitor Biggs MD Primary Care Provider +1-4 Vitor Biggs MD Primary Care Provider +1-4 Vitor Biggs MD Primary Care Provider +1- Encounter Details Date Type Department Care Team (Latest Contact Info) Description 10/20/2017 Transcribe Orders [facility] Laboratory [address] [place] [address] Anuja Mejía PA-C [address] [place] [address] [email or web address] Sclerosing mesenteritis (Primary Dx) Social History Tobacco Use Types Packs/Day Years Used Date Smoking Tobacco: Never Assessed Comments Unknown Sex and Gender Information Value Date Recorded Sex Assigned at Female 08/27/2021 11:33 AM EDT Legal Sex Female 10:07 PM EDT Gender Identity Not on file Sexual Orientation Not on file documented as of this encounter Plan of Treatment Upcoming Encounters Date Type Department Care Team (Late st Contact Info) Description 09/15/2025 10:30 AM EDT Office Visit [facility] [address] [facility] 3rd Floor, [address] [place] [address] Jet Lynn DO [address] [facility] [address] [place] [address] [email or web address] documented as of this encounter Results * Ova and parasites, stool (10/16/2017 11:32 AM EST) Specimen Source/ Description STOOL STOOL [facility] Special Requests None [facility] DIRECT EXAM NO OVA OR PARASITES SEEN [facility] Report Status 10/26/2017 FINAL [facility] Stool (Stool) 10/16/2017 11: 32 AM EST 10/20/2017 11:35 AM EST Anuja Mejía PA-C MICROBIOLOGY - GENERAL ORDERABL ES Final Result [facility] [address] [place] [address] documented in this encounter Visit Diagnoses Diagnosis Sclerosing mesenteritis- Primary documented in this encounter Additional Health Concerns Infection Onset Date Last Indicated Resolved Time CoV-Risk 06/29/2020 07/02/2020 07/13/2020 1:36 AM EDT CoV-Risk 12/23/2020 12/25/2020 01/02/2021 1:25 AM EST documented as of this encounter Care Teams Plate Former Relationship Specialty Start Date End Date Vitor Biggs MD [address] [place] [address] [email or web address] PCP - General Family Medicine 10/09/17 07/16/21 Vitor Biggs MD [address] [place] [address] [email or web address] PCP - General Family Medicine 07/17/21 09/12/24 Vitor Biggs MD [address] [place] [phone] [email or web address] PCP - General Family Medicine 09/13/24 Soraya Mcdonough DO [address] [place] [address] [email or web address] Historical LMR Provider 09/19/17 12/07/21 Vitor Biggs MD [address] [place] [address] [email or web address] Primary Care Physician 09/19/17 Fabiola Gilbert CNM [address] [place] [address] Historical LMR Provider 09/19/17 2 Abeba Chacon NP [address] [place] [address] Historical LMR Provider 09/19/17 2 Andrews Cervantes MD [address] [place] [address] Historical LMR Provider 09/19/17 Aditi Bowers MD [address] [place] [address] Historical LMR Provider 09/19/17 2 Edda Sim NP [address] [place] [phone] Historical LMR Provider 09/19/17 2 Alta Weaver MD [address] [address] Historical LMR Provider 09/19/17 Lukas Dawkins CNP [address] [address] Historical LMR Provider 09/19/17 12/07/21 documented as of this encounter Additional Source Comments The information contained in this document represents components of the legal health record. It is not the complete legal health record.[facility]
--- OUTSIDE RECORDS SUMMARY | 2025-07-25 22:34 | XMS_ITS | Encounter Summary ---
Author Organization [facility] Address [address] [facility] [address] [place] [address] Phone Care Team Providers Care Boots And Shoes Supervisor Name Role Phone Soraya Mcdonough DO Unavailable Vitor Biggs MD Unavailable [phone] Fabiola Gilbert CNM Unavailable Abeba Chacon QA AUDITOR Unavailable [phone] Andrews Cervantes MD Unavailable Aditi Bowers MD Unavailable Edda Sim QA AUDITOR Unavailable Alta Weaver MD Unavailable [phone] Lukas Dawkins SPIKE MACHINE FEEDER Unavailable [phone] Vitor Biggs MD Primary Care Provider +1-4 Vitor Biggs MD Primary Care Provider +1- Vitor Biggs MD Primary Care Provider +1- Encounter Details Date Type Department Care Team (Latest Contact Info) Description 12/23/2020 Transcribe Orders Virtual Department 30 [place] [address] Vanda Pedro MD 31 [place] [address] Fever, unspecified fever cause (Primary Dx); Sore throat; Headache, unspecified headache type Social History Tobacco Use Types Packs/Day Years Used Date Smoking Tobacco: Never Smokeless Tobacco: Never Alcohol Use Standard Drinks/Week Comments Not Currently 0 (1 standard drink = 0.6 oz pur e alcohol) Comments No Sex and Gender Information Value Date Recorded Sex Assigned at Female 08/27/2021 11:33 AM EDT Legal Sex Female 10:07 PM EDT Gender Identity Not on file Sexual Orientation Not on file documented as of this encounter Plan of Treatment Upcoming Encounters Date Type Department Care Team (Late st Contact Info) Description 09/15/2025 10:30 AM EDT Office Visit [facility] [address] [place] [address] 3rd [facility], [address] [place] [address] Jet Lynn DO [address] [place] [address] [place] [address] [email or web address] documented as of this encounter Results * COVID-19 PCR Order (12/25/2020 8:35 AM EST) COVID Testing Status PATIENT DID NOT ARRIVE FOR SCHEDULED TESTING. [facility] Comment:PROVIDER TO RESCHEDU LE NECESSARY. Symptomatic? YES [facility] 12/25/2020 8:35 AM EST 12/26/2020 2:56 AM EST us Vanda Pedro MD BODY FLUIDS AND STOOLS ORDERABL ES Final Result [facility] 30 [place] [address] documented in this encounter Visit Diagnoses Diagnosis Fever, unspecified fever cause- Primary Sore throat Acute pharyngitis Headache, unspecified headache type documented in this encounter Additional Health Concerns Infection Onset Date Last Indicated Resolved Time CoV-Risk 12/23/2020 12/25/2020 01/02/2021 1:25 AM EST documented as of this encounter Care Teams Boots And Shoes Supervisor Relationship Specialty Start Date End Date Vitor Biggs MD 30 [place] [address] [email or web address] PCP - General Family Medicine 10/09/17 07/16/21 Vitor Biggs MD [address] [place] [address] [email or web address] PCP - General Family Medicine 07/17/21 09/12/24 Vitor Biggs MD [address] [place] [address] [email or web address] PCP - General Family Medicine 09/13/24 Soraya Mcdonough DO [address] [place] [address] [email or web address] Historical LMR Provider 09/19/17 12/07/21 Vitor Biggs MD [address] [place] [address] [email or web address] Primary Care Physician 09/19/17 Fabiola Gilbert CNM [address] [place] [address] Historical LMR Provider 09/19/17 2 Abeba Chacon NP [address] [place] [address] Historical LMR Provider 09/19/17 2 Andrews Cervantes MD 22 [facility] [address] [place] [address] Historical LMR Provider 09/19/17 Aditi Bowers MD [address] [place] [address] Historical LMR Provider 09/19/17 2 Edda Sim NP [address] [place] [phone] Historical LMR Provider 09/19/17 2 Alta Weaver MD [address] [address] Historical LMR Provider 09/19/17 Lukas Dawkins CNP [address] [address] Historical LMR Provider 09/19/17 12/07/21 documented as of this encounter Additional Source Comments The information contained in this document represents components of the legal health record. It is not the complete legal health record.[facility]
--- OUTSIDE RECORDS SUMMARY | 2025-07-25 22:34 | XMS_ITS | Encounter Summary ---
Author Organization [facility] Address [address] [facility] [address] [place] [address] Phone Care Team Providers Care Html Web Developer Name Role Phone Pcp, Unknown Primary Care Provider Unavailabl e Soraya Mcdonough DO Unavailable Vitor Biggs MD Unavailable [phone] Fabiola Gilbert CNM Unavailable Abeba Chacon SIMULATION SOFTWARE ENGINEER Unavailable Andrews Cervantes MD Unavailable Aditi Bowers MD Unavailable Edda Sim SIMULATION SOFTWARE ENGINEER Unavailable Alta Weaver MD Unavailable [phone] Lukas Dawkins ECONOMICS ANALYST Unavailable [phone] Vitor Biggs MD Primary Care Provider +1-4 Vitor Biggs MD Primary Care Provider +1-4 Vitor Biggs MD Primary Care Provider +1-4 Vitor Biggs MD Primary Care Provider +1-4 2 Encounter Details Date Type Department Care Team (Latest Contact Info) Description 09/19/2017 Ancillary Orders [facility], Ct Scan [address] [place] [address] Anuja Mejía PA-C [address] [place] [address] [email or web address] Sclerosing mesenteritis Social History Tobacco Use Types Packs/Day Years [...] Description 09/15/2025 10:30 AM EDT Office Visit [facility] [address] [place] [address] [address]rd [facility], [address] [place] [address] Jet Lynn DO [address] [place] [address] [place] [address] [email or web address] documented as of this encounter Results * CT ABDOMEN/PELVIS WITHOUT CONTRAST (10/05/2017 1:07 PM EST) Anatomical Region Laterality Modality Abdomen, Pelvis Computed Tomogra phy 10/05/2017 1:10 PM EST Impressions 10/05/2017 1:19 PM EST No definitive findings of sclerosing mesenteritis identified. No explanation for central abdominal pain and back pain is seen other than degenerative changes in the lower lumbar spine. TOTAL CTDIvol: 6.70 mGy S/S: Central abdominal pain, back pain POS - [id number] Narrative 10/05/2017 1:19 PM EST COMPARISON: CT abdomen and pelvis 12/29/2011 TECHNIQUE: Unenhanced imaging is obtained from the dome of the liver to the symphysis pubis. Sagittal and coronal reformats generated. Automated exposure control utilized. FINDINGS: The lung bases are clear. No significant pleural fluid is evident. The liver appears homogeneous. No bile duct dilatation is seen. The spleen is unremarkable. The pancreas is unremarkable. No adrenal masses are seen. The kidneys are unremarkable. No periaortic lymphadenopathy is noted. There is minor hazy density in the mesentery without specific findings of sclerosing mesenteritis evident. The urinary bladder is decompressed. The patient has had a prior hysterectomy. There are tmpo-[id number] degenerative changes in the thoracolumbar spine. No acute compression fracture is seen. Procedure Note Faraz Ferrell MD - 10/05/2017 COMPARISON: CT abdomen and pelvis 12/29/2011 TECHNIQUE: Unenhanced imaging is obtained from the dome of the liver tothe symphysis pubis. Sagittal and coronal reformats generated. Automated exposure control utilized. FINDINGS: The lung bases are clear. No significant pleural fluid is evident. The liver appears homogeneous. No bile duct dilatation is seen. The spleen is unremarkable. The pancreas is unremarkable. No adrenal masses are seen. The kidneys are unremarkable. No periaortic lymphadenopathy is noted. There is minor hazy density in the mesentery without specific findings ofsclerosing mesenteritis evident. The urinary bladder is decompressed. The patient has had a priorhysterectomy. There are njry-rc-njixyarm degenerative changes in the thoracolumbarspine. No acute compression fracture is seen. IMPRESSION: No definitive findings of sclerosing mesenteritis identified. Noexplanation for central abdominal pain and back pain is seen other thandegenerative changes in the lower lumbar spine. TOTAL CTDIvol: 6.70 mGy S/S: Central abdominal pain, back pain POS - [id number] Anuja COTTO CT ABD/PELVIS Final Result documented in this encounter Visit Diagnoses Diagnosis Sclerosing mesenteritis Sclerosing mesenteritis documented in this encounter Additional Health Concerns Infection Onset Date Last Indicated Resolved Time CoV-Risk 06/29/2020 07/02/2020 07/13/2020 1:36 AM EDT CoV-Risk 12/23/2020 12/25/2020 01/02/2021 1:25 AM EST documented as of this encounter Care Teams Html Web Developer Relationship Specialty Start Date End Date Pcp, Unknown PCP - General 09/19/17 09/21/17 Vitor Biggs MD 30 [place] [address] [email or web address] PCP - General 09/22/17 10/08/17 Vitor Biggs MD 30 [place] [address] [email or web address] PCP - General Family Medicine 10/09/17 07/16/21 Vitor Biggs MD 30 [place] [address] [email or web address] PCP - General Family Medicine 07/17/21 09/12/24 Vitor Biggs MD [address] [place] [address] [email or web address] PCP - General Family Medicine 09/13/24 Soraya Mcdonough DO 30 [place] [address] [email or web address] Historical LMR Provider 09/19/17 12/07/21 Vitor Biggs MD 30 [place] [address] [email or web address] Primary Care Physician 09/19/17 Fabiola Gilbert CNM 30 [place] [address] Historical LMR Provider 09/19/17 2 Abeba Chacon NP 30 [place] [address] Historical LMR Provider 09/19/17 2 Andrews Cervantes MD [address] [address] Historical LMR Provider 09/19/17 Aditi Boewrs MD [address] [place] [address] Historical LMR Provider 09/19/17 2 Edda Sim NP [address] [place] [phone] Historical LMR Provider 09/19/17 2 Alta Weaver MD [address] [address] Historical LMR Provider 09/19/17 Lukas Dawkins CNP [address] [address] Historical LMR Provider 09/19/17 12/07/21 documented as of this encounter Additional Source Comments The information contained in this document represents components of the legal health record. It is not the complete legal health record.[facility]
--- OUTSIDE RECORDS SUMMARY | 2025-07-25 22:34 | XMS_ITS | Encounter Summary ---
Author Organization [facility] Address [address] [facility] [address] [place] [address] Phone Care Team Providers Care Hot Braider Name Role Phone Soraya Mcdonough DO Unavailable [phone] Vitor Biggs MD Unavailable [phone] Fabiola Gilbert CNM Unavailable Abeba Chacon ARRT TECHNOLOGIST Unavailable [phone] Andrews Cervantes MD Unavailable Aditi Bowers MD Unavailable Edda Sim ARRT TECHNOLOGIST Unavailable Alta Weaver MD Unavailable [phone] Lukas Dawkins TRAILHEAD CONSTRUCTION WORKER Unavailable [phone] Vitor Biggs MD Primary Care Provider +1- Vitor Biggs MD Primary Care Provider +1- Vitor Biggs MD Primary Care Provider +1- Reason for Referral * MRI/CAT Scan - Closed Specialty Diagnoses / Procedures Referred By Mahogany t Referred To Contact Radiology Diagnoses Diarrhea, unspecified type Weight loss Procedures CT Abdomen/Pelvis Silvia Siddiqi PA Phone: tel: fax: Referral ID Status Reason Start Date Expiration Date Visits Re quested Visits Authorized [id number] Closed 10/12/2020 02/09/2021 1 1 Encounter Details Date Type Department Care Team (Latest Contact Info) Description 10/15/2020 Transcribe Orders Virtual Department 30 [place] [address] Silvia Siddiqi PA 10 [place] [address] Diarrhea, unspecified type (Primary Dx); Weight loss Social History Tobacco Use Types Packs/Day Years Used Date Smoking Tobacco: Never Smokeless Tobacco: Never Alcohol Use Standard Drinks/Week Comments No 0 (1 standard drink = 0.6 oz [...] Description 09/15/2025 10:30 AM EDT Office Visit [facility] [address] [place] [address] [address] [facility], [address] [place] [address] Jet Lynn DO [address] [facility] [address] [place] [address] [email or web address] documented as of this encounter Results * CT ABDOMEN/PELVIS WITH CONTRAST (11/09/2020 12:50 PM EST) Anatomical Region Laterality Modality Abdomen, Pelvis Computed Tomogra phy 11/09/2020 12:5 5 PM EST Impressions 11/09/2020 1:07 PM EST 1. Narrowing of the majority of the transverse colon is likely due to peristalsis. This could be correlated with colonoscopy. No definite bowel wall thickening. 2. No other explanation for pain, diarrhea and weight loss. Narrative 11/09/2020 1:07 PM EST HISTORY: Pain, diarrhea and weight loss. COMPARISON: CT abdomen/pelvis 10/05/2017. TECHNIQUE: CT abdomen and pelvis without IV and with oral contrast. Multiplanar reformatted images generated. Automated exposure control utilized. FINDINGS: Lower hemithoraces: No significant abnormalities. GI: No marked bowel distention or evidence of bowel wall thickening. The lumen of the majority of the transverse colon is small, likely due to peristalsis. The descending colon and sigmoid are undistended. No findings suspicious for bowel wall thickening. No evidence of inflammatory changes in the mesentery or pericolic fat. Liver/spleen: No significant abnormalities of the liver and spleen. Both appear stable compared with 10/05/2017. Pancreas/biliary: The pancreas is mildly atrophic diffusely. No significant abnormalities. The gallbladder is contracted. No evidence of biliary ductal dilatation. Adrenals/: Adrenals appear normal. No significant renal abnormalities. Ureters normal in caliber. The bladder is poorly distended. Lymph node/lymphatics: No measurable lymphadenopathy. Abdominal aorta normal in caliber. Cardiovascular: Abdominal aorta normal in caliber. Mild diffuse atherosclerotic changes. Musculoskeletal: No suspicious lytic or blastic lesions within the bones. Procedure Note Johny Neely MD - 11/09/2020 HISTORY: Pain, diarrhea and weight loss. COMPARISON: CT abdomen/pelvis 10/05/2017. TECHNIQUE: CT abdomen and pelvis without IV and with oral contrast.Multiplanar reformatted images generated. Automated exposure controlutilized. FINDINGS: Lower hemithoraces: No significant abnormalities. GI: No marked bowel distention or evidence of bowel wall thickening. Thelumen of the majority of the transverse colon is small, likely due toperistalsis. The descending colon and sigmoid are undistended. No findingssuspicious for bowel wall thickening. No evidence of inflammatory changesin the mesentery or pericolic fat. Liver/spleen: No significant abnormalities of the liver and spleen. Bothappear stable compared with 10/05/2017. Pancreas/biliary: The pancreas is mildly atrophic diffusely. Nosignificant abnormalities. The gallbladder is contracted. No evidence ofbiliary ductal dilatation. Adrenals/: Adrenals appear normal. No significant renal abnormalities.Ureters normal in caliber. The bladder is poorly distended. Lymph node/lymphatics: No measurable lymphadenopathy. Abdominal aortanormal in caliber. Cardiovascular: Abdominal aorta normal in caliber. Mild diffuseatherosclerotic changes. Musculoskeletal: No suspicious lytic or blastic lesions within thebones. IMPRESSION: 1. Narrowing of the majority of the transverse colon is likely due toperistalsis. This could be correlated with colonoscopy. No definite bowelwall thickening. 2. No other explanation for pain, diarrhea and weight loss. us Silvia CHRISTOPHER IMG CT ABD/PELVIS Final Res ult documented in this encounter Visit Diagnoses Diagnosis Diarrhea, unspecified type- Primary Weight loss Loss of weight Diarrhea, unspecified type Weight loss Loss of weight documented in this encounter Additional Health Concerns Infection Onset Date Last Indicated Resolved Time CoV-Risk 12/23/2020 12/25/2020 01/02/2021 1:25 AM EST documented as of this encounter Care Teams Hot Braider Relationship Specialty Start Date End Date Vitor Biggs MD 30 [place] [address] [email or web address] PCP - General Family Medicine 10/09/17 07/16/21 Vitor Biggs MD [address] [place] [address] [email or web address] PCP - General Family Medicine 07/17/21 09/12/24 Vitor Biggs MD [address] [place] [address] [email or web address] PCP - General Family Medicine 09/13/24 Soraya Mcdonough DO 30 [place] [address] [email or web address] Historical LMR Provider 09/19/17 12/07/21 Vitor Biggs MD 30 [place] [address] [email or web address] Primary Care Physician 09/19/17 Fabiola Gilbert CNM [address] [place] [address] Historical LMR Provider 09/19/17 2 Abeba Chacon NP 30 [place] [address] Historical LMR Provider 09/19/17 2 Andrews Cervantes MD [address] [address] Historical LMR Provider 09/19/17 Aditi Bowers MD [address] [place] [address] Historical LMR Provider 09/19/17 2 Edda Sim ARRT TECHNOLOGIST [address] [place] [phone] Historical LMR Provider 09/19/17 2 Alta Weaver MD [address] [place] [address], [address] [place] [address] Historical LMR Provider 09/19/17 Lukas Dawkins CNP 15 [facility], [address] [place] [address] [email or web address] Historical LMR Provider 09/19/17 12/07/21 documented as of this encounter Additional Source Comments The information contained in this document represents components of the legal health record. It is not the complete legal health record.[facility]
--- OUTSIDE RECORDS SUMMARY | 2025-07-25 22:34 | XMS_ITS | Encounter Summary ---
Author Organization [facility] Address [address] [place] [address] Phone Care Team Providers Care Aircraft Engineer Name Role Phone Vitor Biggs MD Unavailable [phone] Andrews Cervantes MD Unavailable Vitor Biggs MD Primary Care Provider Vitor Biggs MD Primary Care Provider Encounter Details Date Type Department Care Team (Late st Contact Info) Description 06/22/2023 Procedure Pass [facility], Ct Scan - [facility] [address] [place] [address] Social History Tobacco Use Types Packs/Day Years [...] Date of Assessment Author No Risk Indicated 06/22/2023 9:17 PM EDT Omayra Cheema RN * [place] Suicide Severity Rating Scale (Screener/Recent Self-Report) Question Answer Date of Assessment Author 1. Wish to be (Past 1 Month) No 023 9:17 PM EDT Omayra Cheema RN 2. Non-Specific Active Suici kiesha Thoughts (Past 1 Month) No 06/22/2023 9:17 PM EDT Esther Cheema RN 6. Suicidal Behavior (Lifetime) No 3 9:17 PM EDT Omayra Cheema, GONZALO documented as of this encounter Plan of Treatment Upcoming Encounters Date Type Department Care Team (Late st Contact Info) Description 09/15/2025 10:30 AM EDT Office Visit [facility] [address] [place] [address] 3rd Floor, [address] [place] [address] Jet Lynn DO 22 [facility] [address] [place] [address] documented as of this encounter Visit Diagnoses Not on filedocumented in this encounter Care Teams Aircraft Engineer Relationship Specialty Start Date End Date Vitor Biggs MD PCP - General Family Medicine 07/17/21 09/12/24 Vitor Biggs MD [address] [place] [address] [email or web address] PCP - General Family Medicine 09/13/24 Vitor Biggs MD [email or web address] Primary Care Physician 09/19/17 Adnrews Cervantes MD [address] [place] [address] [email or web address] Historical LMR Provider 09/19/17 documented as of this encounter Additional Source Comments The information contained in this document represents components of the legal health record. It is not the complete legal health record.[facility]
--- OUTSIDE RECORDS SUMMARY | 2025-07-25 22:34 | XMS_ITS | Encounter Summary ---
Author Organization [facility] Address [address] [facility] [address] [place] [address] Phone Care Team Providers Care Needle Loom Operator Helper Name Role Phone Soraya Mcdonough Unavailable Vitor Biggs MD Unavailable [phone] Fabiola Gilbert CNM Unavailable Abeba Chacon MECHANICAL EXPERT Unavailable [phone] Andrews Cervantes MD Unavailable Aditi Bowers MD Unavailable Edda Sim MECHANICAL EXPERT Unavailable Alta Weaver MD Unavailable [phone] Lukas Dawkins DENTAL MOLD MAKER Unavailable [phone] Vitor Biggs MD Primary Care Provider [phone] Vitor Biggs MD Primary Care Provider [phone] Vitor Biggs MD Primary Care Provider [phone] Encounter Details Date Type Department Care Team (Late st Contact Info) Description 09/19/2020 Ancillary Orders Virtual Department 30 [place] [address] Vitor Biggs MD 238 [place], [place] [phone] [email or web address] Breast screening Social History Tobacco Use Types Packs/Day Years [...] Description 09/15/2025 10:30 AM EDT Office Visit [facility] [address] [place] [address] 3rd Floor, [address] [place] [address] Jet Lynn DO [address] [place] [address] [email or web address] documented as of this encounter Visit Diagnoses Diagnosis Breast screening Breast screening, unspecified documented in this encounter Additional Health Concerns Infection Onset Date Last Indicated Resolved Time CoV-Risk 12/23/2020 12/25/2020 01/02/2021 1:25 AM EST documented as of this encounter Care Teams Needle Loom Operator Helper Relationship Specialty Start Date End Date Vitor Biggs MD 30 [place] [address] [email or web address] PCP - General Family Medicine 10/09/17 07/16/21 Vitor Biggs MD 30 [place] [address] [email or web address] PCP - General Family Medicine 07/17/21 09/12/24 Vitor Biggs MD [address] [place] [address] [email or web address] PCP - General Family Medicine 09/13/24 Soraya Mcdonough DO [address] [place] [address] [email or web address] Historical LMR Provider 09/19/17 12/07/21 Vitor Biggs MD [address] [place] [address] [email or web address] Primary Care Physician 09/19/17 Fabiola Gilbert CNM [address] [place] [address] Historical LMR Provider 09/19/17 2 Abeba Chacon NP [address] [place] [address] Historical LMR Provider 09/19/17 2 Andrews Cervantes MD [address] [place] [address] [email or web address] Historical LMR Provider 09/19/17 Aditi Bowers MD [address] [place] [address] Historical LMR Provider 09/19/17 2 Edda Sim MECHANICAL EXPERT [address] [place] [phone] Historical LMR Provider 09/19/17 2 Alta Weaver MD [address] [address] [email or web address] Historical LMR Provider 09/19/17 Lukas Dawkins CNP [address] [address] [email or web address] Historical LMR Provider 09/19/17 12/07/21 documented as of this encounter Additional Source Comments The information contained in this document represents components of the legal health record. It is not the complete legal health record.[facility]
--- OUTSIDE RECORDS SUMMARY | 2025-07-25 22:34 | XMS_ITS | Encounter Summary ---
Author Organization [facility] Address [address] [place] [address] Phone Care Team Providers Care Inorganic Chemistry Professor Name Role Phone Vitor Biggs MD Unavailable Andrews Cervantes MD Unavailable Vitor Biggs MD Primary Care Provider Vitor Biggs MD Primary Care Provider Encounter Details Date Type Department Care Team (Late st Contact Info) Description 06/22/2023 Procedure Pass [facility], Ct Scan - [facility] 30 [place] [address] Social History Tobacco Use Types Packs/Day Years [...] 9:17 PM EDT Omayra Cheema RN * [place] Suicide Severity Rating Scale (Screener/Recent Self-Report) Question [...] Description 09/15/2025 10:30 AM EDT Office Visit [facility] [address] [place] [address] 3rd Floor, [address] [place] [address] Jet Lynn DO 22 [place] [facility] [address] [place] [address] documented as of this encounter Visit Diagnoses Not on filedocumented in this encounter Care Teams Inorganic Chemistry Professor Relationship Specialty Start Date End Date Vitor Biggs MD PCP - General Family Medicine 07/17/21 09/12/24 Vitor Biggs MD [address] [place] [address] [email or web address] PCP - General Family Medicine 09/13/24 Vitor Biggs MD [email or web address] Primary Care Physician 09/19/17 Andrews Cervantes MD [address] [place] [address] [email or web address] Historical LMR Provider 09/19/17 documented as of this encounter Additional Source Comments The information contained in this document represents components of the legal health record. It is not the complete legal health record.[facility]
--- OUTSIDE RECORDS SUMMARY | 2025-07-25 22:34 | XMS_ITS | Encounter Summary ---
Author Organization [facility] Address [address] [facility] [address] [place] [address] Phone Care Team Providers Care Custom Grinder Name Role Phone Soraya Mcdonough Unavailable Vitor Biggs MD Unavailable [phone] Fabiola Gilbert CNM Unavailable Abeba Chacon STAND IN Unavailable Andrews Cervantes MD Unavailable Aditi Bowers MD Unavailable Edda Sim STAND IN Unavailable Alta Weaver MD Unavailable [phone] Lukas Dawkins CRAYON PAINTER Unavailable [phone] Vitor Biggs MD Primary Care Provider [phone] Vitor Biggs MD Primary Care Provider [phone] Encounter Details Date Type Department Care Team (Late st Contact Info) Description 08/27/2021 Procedure Pass [facility], Ct Scan - [address] [address] Social History Tobacco Use Types Packs/Day Years [...] 11:32 AM EDT Sapna Sewell RN * [place] Suicide Severity Rating Scale (Screener/Recent Self-Report) Question [...] Description 09/15/2025 10:30 AM EDT Office Visit [facility] [address] [place] [address] 3rd [facility], [address] [place] [address] Jet Lynn DO [address] [place] [address] [place] [address] [email or web address] documented as of this encounter Visit Diagnoses Not on filedocumented in this encounter Care Teams Custom Grinder Relationship Specialty Start Date End Date Vitor Biggs MD 30 [place] [address] PCP - General Family Medicine 07/17/21 09/12/24 Vitor Biggs MD 238 [place] [address] PCP - General Family Medicine 09/13/24 Soraya Mcdonough DO 30 [place] [address] [email or web address] Historical LMR Provider 09/19/17 12/07/21 Vitor Biggs MD 30 [place] [address] [email or web address] Primary Care Physician 09/19/17 Fabiola Gilbert CNM 30 [place] [address] Historical LMR Provider 09/19/17 2 Abeba Chacon NP [address] [place] [address] Historical LMR Provider 09/19/17 2 Andrews Cervantes MD [address] [address] [email or web address] Historical LMR Provider 09/19/17 Aditi Bowers MD [address] [place] [address] Historical LMR Provider 09/19/17 2 Edda Sim STAND IN [address] [place] [phone] Historical LMR Provider 09/19/17 2 Alta Weaver MD [address] [place] [address] Historical LMR Provider 09/19/17 Lukas Dawkins, PEGGY [address] [address] Historical LMR Provider 09/19/17 12/07/21 documented as of this encounter Additional Source Comments The information contained in this document represents components of the legal health record. It is not the complete legal health record.[facility]
--- OUTSIDE RECORDS SUMMARY | 2025-07-25 22:34 | XMS_ITS | Encounter Summary ---
Author Organization [facility] Address [address] [facility] [address] [place] [address] Phone Care Team Providers Care Perl Developer Name Role Phone Vitor Biggs MD Unavailable [phone] Andrews Cervantes MD Unavailable Vitor Biggs MD Primary Care Provider Vitor Biggs MD Primary Care Provider Encounter Details Date Type Department Care Team (Late st Contact Info) Description 08/27/2023 Transcribe Orders [facility] [address] [place] [address] Vitor Biggs MD 238 [place], [place] [phone] [email or web address] Social History Tobacco Use Types Packs/Day Years [...] Description 09/15/2025 10:30 AM EDT Office Visit [facility] [address] [place] [address] 3rd [facility], [address] [place] [address] Jet Lynn DO [address] [place] [address] [place] [address] [email or web address] documented as of this encounter Visit Diagnoses Not on filedocumented in this encounter Care Teams Perl Developer Relationship Specialty Start Date End Date Vitor Biggs MD PCP - General Family Medicine 07/17/21 09/12/24 Vitor Biggs MD [address] [place] [address] PCP - General Family Medicine 09/13/24 Vitor Biggs MD [email or web address] Primary Care Physician 09/19/17 Andrews Cervantes MD [address] [place] [address] [email or web address] Historical LMR Provider 09/19/17 documented as of this encounter Additional Source Comments The information contained in this document represents components of the legal health record. It is not the complete legal health record.[facility]
--- OUTSIDE RECORDS SUMMARY | 2025-07-25 22:34 | XMS_ITS | Encounter Summary ---
Author Organization [facility] Address [address] [facility] [address] [place] [address] Phone Care Team Providers Care Leasing Manager Name Role Phone Soraya Mcdonough Unavailable [phone] Vitor Biggs MD Unavailable [phone] Fabiola Gilbert CNM Unavailable Abeba Chacon INTERNET ARCHITECT Unavailable [phone] Andrews Cervantes MD Unavailable Aditi Bowers MD Unavailable Edda Sim INTERNET ARCHITECT Unavailable Alta Weaver MD Unavailable [phone] Lukas Dawkins REGISTERED NURSE SUPERVISOR Unavailable [phone] Vitor Biggs MD Primary Care Provider [phone] Vitor Biggs MD Primary Care Provider [phone] Vitor Biggs MD Primary Care Provider [phone] Encounter Details Date Type Department Care Team (Latest Contact Info) Description 11/18/2019 Transcribe Orders [facility] Department [address] [place] [address] Gume Esquivel MD [address] [place] [address], [address] [place] [address] [email or web address] Seizures (Primary Dx) Social History Tobacco Use Types [...] Description 09/15/2025 10:30 AM EDT Office Visit [facility] [address] [facility] 3rd Floor, [address] [place] [address] Jet Lynn DO [address] [facility] [address] [place] [address] [email or web address] documented as of this encounter Visit Diagnoses Diagnosis Seizures- Primary Other convulsions documented in this encounter Additional Health Concerns Infection Onset Date Last Indicated Resolved Time CoV-Risk 06/29/2020 07/02/2020 07/13/2020 1:36 AM EDT CoV-Risk 12/23/2020 12/25/2020 01/02/2021 1:25 AM EST documented as of this encounter Care Teams Leasing Manager Relationship Specialty Start Date End Date Vitor Biggs MD 30 [place] [address] PCP - General Family Medicine 10/09/17 07/16/21 Vitor Biggs MD 30 [place] [address] PCP - General Family Medicine 07/17/21 09/12/24 Vitor Biggs MD [address] [place] [address] [email or web address] PCP - General Family Medicine 09/13/24 Soraya Mcdonough DO 30 [place] [address] [email or web address] Historical LMR Provider 09/19/17 12/07/21 Vitor Biggs MD 30 [place] [address] [email or web address] Primary Care Physician 09/19/17 Fabiola Gilbert CNM [address] [place] [address] Historical LMR Provider 09/19/17 2 Abeba Chacon NP [address] [place] [address] Historical LMR Provider 09/19/17 2 Andrews Cervantes MD [address] [place] [address] [email or web address] Historical LMR Provider 09/19/17 Aditi Bowers MD [address] [place] [address] Historical LMR Provider 09/19/17 2 Edda Sim INTERNET ARCHITECT [address] [place] [phone] Historical LMR Provider 09/19/17 2 Alta Weaver MD [address] [address] Historical LMR Provider 09/19/17 Lukas Dawkins CNP [address] [place] [address] Historical LMR Provider 09/19/17 12/07/21 documented as of this encounter Additional Source Comments The information contained in this document represents components of the legal health record. It is not the complete legal health record.[facility]
--- OUTSIDE RECORDS SUMMARY | 2025-07-25 22:34 | XMS_ITS | Encounter Summary ---
Author Organization [facility] Address [address] [facility] [address] [address] [place] [address] Phone Care Team Providers Care Machinery Erector Name Role Phone Soraya Mcdonough Unavailable [phone] Vitor Biggs MD Unavailable [phone] Fabiola Gilbert CNM Unavailable Abeba Chacon PROCUREMENT AGENT Unavailable [phone] Andrews Cervantes MD Unavailable Aditi Bowers MD Unavailable Edda Sim PROCUREMENT AGENT Unavailable Alta Weaver MD Unavailable [phone] Lukas Dawkins DIESEL TRAILER MECHANIC Unavailable [phone] Vitor Biggs MD Primary Care Provider +[phone]- Vitor Biggs MD Primary Care Provider +1- Vitor Biggs MD Primary Care Provider [phone] Encounter Details Date Type Department Care Team (Late st Contact Info) Description 07/15/2021 Ancillary Orders Virtual Department 30 [place] [address] Vitor Biggs MD 238 [place], [place] [phone] [email or web address] Breast screening Social History Tobacco Use Types [...] Description 09/15/2025 10:30 AM EDT Office Visit [facility] [address] [place] [address] 3rd Floor, [address] [place] [address] Jet Lynn DO [address] [facility] [address] [place] [address] [email or web address] documented as of this encounter Visit Diagnoses Diagnosis Breast screening Breast screening, unspecified documented in this encounter Care Teams Machinery Erector Relationship Specialty Start Date End Date Vitor Biggs MD 30 [place] [address] [email or web address] PCP - General Family Medicine 10/09/17 07/16/21 Vitor Biggs MD 30 [place] [address] PCP - General Family Medicine 07/17/21 09/12/24 Vitor Biggs MD [address] [place] [address] [email or web address] PCP - General Family Medicine 09/13/24 Soraya Mcdonough DO 30 [place] [address] [email or web address] Historical LMR Provider 09/19/17 12/07/21 Vitor Biggs MD 30 [place] [address] [email or web address] Primary Care Physician 09/19/17 Fabiola Gilbert CNM 30 [place] [address] Historical LMR Provider 09/19/17 2 Abeba Chacon PROCUREMENT AGENT 30 [place] [address] Historical LMR Provider 09/19/17 2 Andrews Cervantes MD [address] [address] [email or web address] Historical LMR Provider 09/19/17 Aditi Bowers MD [address] [place] [address] Historical LMR Provider 09/19/17 2 Edda Sim PROCUREMENT AGENT [address] [place] [phone] Historical LMR Provider 09/19/17 2 Alta Weaver MD [address] [facility] [place] [address] Historical LMR Provider 09/19/17 Lukas Dawkins, PEGGY [address] [address] [email or web address] Historical LMR Provider 09/19/17 12/07/21 documented as of this encounter Additional Source Comments The information contained in this document represents components of the legal health record. It is not the complete legal health record.[facility]
--- OUTSIDE RECORDS SUMMARY | 2025-07-25 22:34 | XMS_ITS | Encounter Summary ---
Author Organization [facility] Address [address] [place] [address] Encounters * CPT with [facility] at [place] on 2025-07-26 Member calling due to having episode of back pain and feeling light headed. Member out walking in the community and started to have some severe back pain on the upper right side. Member took a cab ride home due to not feeling well and has been at home resting. Member continues to have pain in back that at times shoots over to abdomen. Shooting pain happens with movement not at rest. { reasonForRequest : , patientReports : , denies&quot ;:[], chiefComplaints : Back Pain, Dizziness , pmh : Hypertension, Severe Persistent Mental Illness (SPMI), Anxiety Disorder, Chronic Back Pain, Fibromyalgia, Chronic Pain, Depression, Gastroesophageal Reflux Disease (GERD), Post-Traumatic Stress Disorder (PTSD), Sleep Apnea, Transient Ischemic Attack (TIA) , allergies : Penicillins, Epinephrine, Codeine, Iodine, Percocet, Oxycodone, Nitrofurantoin, Tetracycline, Zoloft , otherAlle rgies :null, painAssessment : , visitOutcome : ,&quot ;additionalComments :null} Patient alert and oriented complains of right side, flank pain that radiates to her lower back abdomen and chest and right arm/shoulder. Patient reports she started feeling weak this afternoon while walking. Patient reports pain started three hours ago at rest described as shooting pain. Patient denies nausea, vomiting, headache, weakness, current dizziness, or any other pain or complaint. Patient reports normal appetite, intake, and elimination, denies any recent change of meds. Patient pink warm dry appears nervous negative increased work of breathing positive full sentences abdomen soft, nontender extremities unremarkable lung sounds clear no edema noted. [facility] advises patient to be seen at ED. Patient agrees, 911 system activated report to EMS on scene. [facility], patient request [facility]. IV_(FLUIDS_AND/OR_MEDICATION), MEDICATION_IM, ORAL_MEDICATION, EKG, POC_BLOODWORK, ORTHOSTATIC_VITAL_SIGNS, PO_MEDICATION Written by [facility] on 2025-07-26
--- OUTSIDE RECORDS SUMMARY | 2025-07-25 22:34 | XMS_ITS | Encounter Summary ---
Author Organization [facility] Address [address] [facility] [address] [place] [address] Phone Care Team Providers Care Body Mechanic Apprentice Name Role Phone Soraya Mcdonough DO Unavailable Vitor Biggs MD Unavailable [phone] Fabiola Gilbert CNM Unavailable Abeba Chacon EMPLOYMENT DIRECTOR Unavailable [phone] Andrews Cervantes MD Unavailable Aditi Bowers MD Unavailable Edda Sim EMPLOYMENT DIRECTOR Unavailable Alta Weaver MD Unavailable [phone] Lukas Dawkins RATE SETTER Unavailable [phone] Vitor Biggs MD Primary Care Provider [phone] Vitor Biggs MD Primary Care Provider +1- Vitor Biggs MD Primary Care Provider +1- Encounter Details Date Type Department Care Team (Latest Contact Info) Description 10/04/2020 Transcribe Orders [facility] Laboratory [address] [id number] Silvia Siddiqi PA 10 [place], [place] [phone] Diarrhea, unspecified type (Primary Dx) Social History Tobacco Use Types [...] Description 09/15/2025 10:30 AM EDT Office Visit [facility] [address] [facility] 3rd Floor, [address] [place] [address] Jet Lynn DO 22 [facility] [address] [place] [address] [email or web address] documented as of this encounter Results * C-Reactive Protein (10/04/2020 3:53 PM EST) C REACTIVE PROTEIN 1.4 0.0 - 4.0 mg/L [facility] Blood 10/04/2020 3:53 PM EST 10/04/2020 3:59 PM EST us Silvia CHRISTOPHER LAB BLOOD ORDERABLES Final Result [facility] [address] [place] [address] * Comprehensive metabolic panel (10/04/2020 3:53 PM EST) SODIUM 138 133 - 146 mmol/L [facility] POTASSIUM 4.1 3.3 - 5.1 mmol/L [facility] CHLORIDE 100 96 - 108 mmol/L [facility] CO2 28 21 - 35 mmol/L [facility] BUN 8 6 - 19 mg/dL [facility] CREATININE 0.70 0.5 - 1.5 mg/dL [facility] GLUCOSE 99 70 - 99 mg/dL [facility] ALBUMIN 4.1 3.9 - 4.8 g/dL [facility] TOTAL PROTEIN 6.8 6.5 - 8.0 g/dL [facility] CALCIUM 9.2 8.4 - 10.3 mg/dL [facility] ALKALINE PHOSPHATASE 63 39 - 117 U/L [facility] TOTAL BILIRUBIN 0.3 0.0 - 1.2 mg/dL [facility] AST 26 0 - 37 U/L [facility] ALT 12 0 - 40 U/L [facility] GLOBULIN 2.7 1 - 4.8 g/dL [facility] EGFR 86 >59 mL/min/1.7 3m2 [facility] Comment:Estimated glomerular filtration rate calculated using the CKD-EPI equation. ANION GAP 14 10 - 20 mmol/L [facility] Blood 10/04/2020 3:53 PM EST 10/04/2020 3:59 PM EST us Silvia CHRISTOPHER LAB BLOOD ORDERABLES Final Result [address] [address] * CBC (10/04/2020 3:53 PM EST) WBC 5.78 4.00 - 11.00 K/uL [facility] Comment:Note Reference Range updates to all CBC and Differential results. RBC 4.46 3.72 - 5.30 M/uL [facility] HGB 13.0 11.4 - 15.9 g/dL [facility] Comment:Note updated Referen ce Ranges for all CBC and Differential results. HCT 40.3 34.2 - 46.8 % [facility] PLT 265 140 - 430 K/uL [facility] MCV 90.4 78.0 - 97.0 fL [facility] MCH 29.1 25.0 - 33.0 pg [facility] MCHC 32.3 32.0 - 36.0 g/dL [facility] RDW 13.0 11.0 - 16.0 % [facility] MPV 11.0 8.4 - 12.8 fl [facility] NRBC 0.00 0 /100 WBCs [facility] ABSOLUTE NRBC 0.00 0 K/uL [facility] Blood 10/04/2020 3:53 PM EST 10/04/2020 3:59 PM EST Silvia CHRISTOPHER LAB BLOOD ORDERABLES Final Result Performing Organization Address [facility] de Phone Number [address] [address] * Immunoglobulin A (10/04/2020 3:53 PM EST) IgA 144 70 - 400 mg/dL [facility] Blood 10/04/2020 3:53 PM EST 10/04/2020 3:59 PM EST Silvia CHRISTOPHER LAB BLOOD ORDERABLES Final Result Performing Organization Address [facility] Phone Number [address] [address] * Tissue transglutaminase IgA (10/04/2020 3:53 PM EST) TTG IGA ANTIBODY <1.2 <4.0 (Negative) U/mL [facility] Blood 10/04/2020 3:53 PM EST 10/04/2020 3:59 PM EST Silvia CHRISTOPHER LAB BLOOD ORDERABLES Final Result Performing Organization Address [facility] Phone Number [facility] MED/[facility] [address] [place] [address] documented in this encounter Visit Diagnoses Diagnosis Diarrhea, unspecified type- Primary documented in this encounter Additional Health Concerns Infection Onset Date Last Indicated Resolved Time CoV-Risk 12/23/2020 12/25/2020 01/02/2021 1:25 AM EST documented as of this encounter Care Teams Body Mechanic Apprentice Relationship Specialty Start Date End Date Vitor Biggs MD [address] [place] [address] [email or web address] PCP - General Family Medicine 10/09/17 07/16/21 Vitor Biggs MD 30 [place] [address] [email or web address] PCP - General Family Medicine 07/17/21 09/12/24 Vitor Biggs MD [address] [place] [address] [email or web address] PCP - General Family Medicine 09/13/24 Soraya Mcdonough DO [address] [place] [address] [email or web address] Historical LMR Provider 09/19/17 12/07/21 Vitor Biggs MD [address] [place] [address] [email or web address] Primary Care Physician 09/19/17 Fabiola Gilbert CNM [address] [place] [address] Historical LMR Provider 09/19/17 2 Abeba Chacon EMPLOYMENT DIRECTOR [address] [place] [address] Historical LMR Provider 09/19/17 2 Andrews Cervantes MD [address] [place] [address] Historical LMR Provider 09/19/17 Aditi Bowers MD [address] [place] [address] Historical LMR Provider 09/19/17 2 Edda Sim NP [address] [place] [phone] Historical LMR Provider 09/19/17 2 Alta Weaver MD [address] [address] Historical LMR Provider 09/19/17 Lukas Dawkins CNP [address] [address] Historical LMR Provider 09/19/17 12/07/21 documented as of this encounter Additional Source Comments The information contained in this document represents components of the legal health record. It is not the complete legal health record.[facility]
--- OUTSIDE RECORDS SUMMARY | 2025-07-25 22:34 | XMS_ITS | Encounter Summary ---
Author Organization [facility] Address [address] [facility] [address] [place] [address] Phone Care Team Providers Care Machine Operators Name Role Phone Pcp, Unknown Primary Care Provider Unavailabl e Soraya Mcdonough DO Unavailable Vitor Biggs MD Unavailable [phone] Fabiola Gilbert CNM Unavailable Abeba Chacon LABORER/KEY MAN Unavailable Andrews Cervantes MD Unavailable Aditi Bowers MD Unavailable Edda Sim LABORER/KEY MAN Unavailable Alta Weaver MD Unavailable Lukas Dawkins INTERVENTION SPECIALIST Unavailable [phone] Vitor Biggs MD Primary Care Provider [phone] Vitor Biggs MD Primary Care Provider +[phone] Vitor Biggs MD Primary Care Provider +1-4 Vitor Biggs MD Primary Care Provider [phone] Encounter Details Date Type Department Care Team (Late st Contact Info) Description 09/19/2017 Procedure Pass [facility], [facility] [address] [place] [address] Social History Tobacco Use Types Packs/Day Years [...] Description 09/15/2025 10:30 AM EDT Office Visit [facility] [address] [place] [address] 3rd Floor, [address] [place] [address] Jet Lynn DO [address] [place] [address] [place] [address] [email or web address] documented as of this encounter Visit Diagnoses Not on filedocumented in this encounter Additional Health Concerns Infection Onset Date Last Indicated Resolved Time CoV-Risk 06/29/2020 07/02/2020 07/13/2020 1:36 AM EDT CoV-Risk 12/23/2020 12/25/2020 01/02/2021 1:25 AM EST documented as of this encounter Care Teams Machine Operators Relationship Specialty Start Date End Date Pcp, Unknown PCP - General 09/19/17 09/21/17 Vitor Biggs MD 30 [place] [address] PCP - General 09/22/17 10/08/17 Vitor Biggs MD 30 [place] [address] PCP - General Family Medicine 10/09/17 07/16/21 Vitor Biggs MD 30 [place] [address] [email or web address] PCP - General Family Medicine 07/17/21 09/12/24 Vitor Biggs MD [address] [place] [address] [email or web address] PCP - General Family Medicine 09/13/24 Soraya Mcdonough DO [address] [place] [address] [email or web address] Historical LMR Provider 09/19/17 12/07/21 Vitor Biggs MD [address] [place] [address] [email or web address] Primary Care Physician 09/19/17 Fabiola Gilbert CNM [address] [place] [address] Historical LMR Provider 09/19/17 2 Abeba Chacon NP [address] [place] [address] Historical LMR Provider 09/19/17 2 Andrews Cervantes MD [address] [place] [address] [email or web address] Historical LMR Provider 09/19/17 Aditi Bowers MD [address] [place] [address] Historical LMR Provider 09/19/17 2 Edda Sim NP [facility] [place] [address] Historical LMR Provider 09/19/17 2 Alta Weaver MD [address] [address] Historical LMR Provider 09/19/17 Lukas Dawkins CNP [address] [address] Historical LMR Provider 09/19/17 12/07/21 documented as of this encounter Additional Source Comments The information contained in this document represents components of the legal health record. It is not the complete legal health record.[facility]
--- OUTSIDE RECORDS SUMMARY | 2025-07-25 22:34 | XMS_ITS | Encounter Summary ---
Author Organization [facility] Address [address] [facility] [address] [place] [address] Phone Care Team Providers Care Warehouseman Name Role Phone Soraya Mcdonough Unavailable [phone] Vitor Biggs MD Unavailable [phone] Fabiola Gilbert CNM Unavailable Abeab Chacon CASH REGISTER REPAIRER Unavailable [phone] Andrews Cervantes MD Unavailable Aditi Bowers MD Unavailable Edda Sim CASH REGISTER REPAIRER Unavailable Alta Weaver MD Unavailable [phone] Lukas Dawkins SKETCHER Unavailable [phone] Vitor Biggs MD Primary Care Provider [phone] Vitor Biggs MD Primary Care Provider [phone] Vitor Biggs MD Primary Care Provider [phone] Encounter Details Date Type Department Care Team (Late st Contact Info) Description 05/26/2019 Ancillary Orders Virtual Department 30 [place] [address] Vitor Biggs MD [address] [place], [place] [phone] [email or web address] Breast screening Social History Tobacco Use Types [...] Description 09/15/2025 10:30 AM EDT Office Visit [facility] [address] [place] [address] 3rd Floor, [address] [place] [address] Jet Lynn DO [address] [place] [address] [email or web address] documented as of this encounter Visit Diagnoses Diagnosis Breast screening Breast screening, unspecified documented in this encounter Additional Health Concerns Infection Onset Date Last Indicated Resolved Time CoV-Risk 06/29/2020 07/02/2020 07/13/2020 1:36 AM EDT CoV-Risk 12/23/2020 12/25/2020 01/02/2021 1:25 AM EST documented as of this encounter Care Teams Warehouseman Relationship Specialty Start Date End Date Vitor Biggs MD 30 [place] [address] [email or web address] PCP - General Family Medicine 10/09/17 07/16/21 Vitor Biggs MD 30 [place] [address] [email or web address] PCP - General Family Medicine 07/17/21 09/12/24 Vitor Biggs MD [address] [place] [address] [email or web address] PCP - General Family Medicine 09/13/24 Soraya Mcdonough DO 30 [place] [address] [email or web address] Historical LMR Provider 09/19/17 12/07/21 Vitor Biggs MD 30 [place] [address] [email or web address] Primary Care Physician 09/19/17 Fabiola Gilbert CNM 30 [place] [address] Historical LMR Provider 09/19/17 2 Abeba Chacon NP 30 [place] [address] Historical LMR Provider 09/19/17 2 Andrews Cervantes MD [address] [place] [address] [email or web address] Historical LMR Provider 09/19/17 Aditi Bowers MD [address] [place] [address] Historical LMR Provider 09/19/17 2 Edda Sim CASH REGISTER REPAIRER [address] [place] [phone] Historical LMR Provider 09/19/17 2 Alta Weaver MD [address] [address] Historical LMR Provider 09/19/17 Lukas Dawkins CNP [address] [address] [email or web address] Historical LMR Provider 09/19/17 12/07/21 documented as of this encounter Additional Source Comments The information contained in this document represents components of the legal health record. It is not the complete legal health record.[facility]
--- OUTSIDE RECORDS SUMMARY | 2025-07-25 22:34 | XMS_ITS | Encounter Summary ---
Author Organization [facility] Address [address] [facility] [address] [place] [address] Phone Care Team Providers Care Clinical Psychiatrist Name Role Phone Soraya Mcdonough Unavailable Vitor Biggs MD Unavailable [phone] Fabiola Gilbert CNM Unavailable Abeba Chacon MANAGER OF TAX Unavailable Andrews Cervantes MD Unavailable Aditi Bowers MD Unavailable Edda Sim MANAGER OF TAX Unavailable Alta Weaver MD Unavailable Lukas Dawkins CONDITIONING MACHINE OPERATOR Unavailable [phone] Vitor Biggs MD Primary Care Provider [phone] Vitor Biggs MD Primary Care Provider +[phone] Vitor Biggs MD Primary Care Provider [phone] Encounter Details Date Type Department Care Team (Late st Contact Info) Description 10/15/2020 Procedure Pass [facility], Ct Scan - [address] [address] Social History Tobacco Use Types Packs/Day Years [...] Description 09/15/2025 10:30 AM EDT Office Visit [facility] [address] [facility] 3rd Floor, [address] [place] [address] Jet Lynn DO [address] [facility] [address] [place] [address] [email or web address] documented as of this encounter Visit Diagnoses Not on filedocumented in this encounter Additional Health Concerns Infection Onset Date Last Indicated Resolved Time CoV-Risk 12/23/2020 12/25/2020 01/02/2021 1:25 AM EST documented as of this encounter Care Teams Clinical Psychiatrist Relationship Specialty Start Date End Date Vitor Biggs MD 30 [place] [address] PCP - General Family Medicine 10/09/17 07/16/21 Vitor Biggs MD 30 [place] [address] PCP - General Family Medicine 07/17/21 09/12/24 Vitor Biggs MD 238 [place] [address] PCP - General Family Medicine 09/13/24 Soraya Mcdonough DO 30 [place] [address] [email or web address] Historical LMR Provider 09/19/17 12/07/21 Vitor Biggs MD 30 [place] [address] [email or web address] Primary Care Physician 09/19/17 Fabiola Gilbert CNM 30 [place] [address] Historical LMR Provider 09/19/17 2 Abeba Chacon MANAGER OF TAX 30 [place] [address] Historical LMR Provider 09/19/17 2 Andrews Cervantes MD [address] [address] Historical LMR Provider 09/19/17 Aditi Bowers MD [address] [place] [address] Historical LMR Provider 09/19/17 2 Edda Sim, MANAGER OF TAX [address] [place] [phone] Historical LMR Provider 09/19/17 2 Alta Weaver MD 15 [facility], 2nd [place] [address] Historical LMR Provider 09/19/17 Lukas Dawkins, PEGGY [address] [facility], [address] [place] [address] [email or web address] Historical LMR Provider 09/19/17 12/07/21 documented as of this encounter Additional Source Comments The information contained in this document represents components of the legal health record. It is not the complete legal health record.[facility]
--- OUTSIDE RECORDS SUMMARY | 2025-07-25 22:34 | XMS_ITS | Encounter Summary ---
Author Organization [facility] Address [address] [facility] [address] [place] [address] Phone Care Team Providers Care Tugger Operator Name Role Phone Soraya Mcdonough Unavailable Vitor Biggs MD Unavailable [phone] Fabiola Gilbert CNM Unavailable Abeba Chacon DENTAL CHAIRSIDE ASSISTANT Unavailable Andrews Cervantes MD Unavailable Aditi Bowers MD Unavailable Edda Sim DENTAL CHAIRSIDE ASSISTANT Unavailable Alta Weaver MD Unavailable [phone] Lukas Dawkins MANAGER IMAGING Unavailable [phone] Vitor Biggs MD Primary Care Provider [phone] Vitor Biggs MD Primary Care Provider [phone] Encounter Details Date Type Department Care Team (Late st Contact Info) Description 08/27/2021 Procedure Pass [facility], Ct Scan - [address] [address] Social History Tobacco Use Types Packs/Day Years [...] 11:32 AM EDT Sapna Sewell RN * [place] Suicide Severity Rating Scale (Screener/Recent Self-Report) Question [...] Description 09/15/2025 10:30 AM EDT Office Visit [facility] [address] [place] [address] [address] [facility], [address] [place] [address] Jet Lynn DO [address] [place] [address] [place] [address] [email or web address] documented as of this encounter Visit Diagnoses Not on filedocumented in this encounter Care Teams Tugger Operator Relationship Specialty Start Date End Date Vitor Biggs MD 30 [place] [address] PCP - General Family Medicine 07/17/21 09/12/24 Vitor Biggs MD 238 [place] [address] PCP - General Family Medicine 09/13/24 Soraya Mcdonough DO 30 [place] [address] [email or web address] Historical LMR Provider 09/19/17 12/07/21 Vitor Biggs MD 30 [place] [address] [email or web address] Primary Care Physician 09/19/17 Fabiola Gilbert CNM 30 [place] [address] Historical LMR Provider 09/19/17 2 Abeba Chacon NP [address] [place] [address] Historical LMR Provider 09/19/17 2 Andrews Cervantes MD [address] [address] [email or web address] Historical LMR Provider 09/19/17 Aditi Bowers MD [address] [address] Historical LMR Provider 09/19/17 2 Edda Sim DENTAL CHAIRSIDE ASSISTANT [address] [place] [phone] Historical LMR Provider 09/19/17 2 Alta Weaver MD [address] [place] [address] Historical LMR Provider 09/19/17 Lukas Dawkins, PEGGY [address] [address] Historical LMR Provider 09/19/17 12/07/21 documented as of this encounter Additional Source Comments The information contained in this document represents components of the legal health record. It is not the complete legal health record.[facility]
--- OUTSIDE RECORDS SUMMARY | 2025-07-25 22:34 | XMS_ITS | Encounter Summary ---
Author Organization [facility] Address [address] [facility] [address] [place] [address] Phone Care Team Providers Care Interactive Digital Media Specialist Name Role Phone Vitor Biggs MD Unavailable Andrews Cervantes MD Unavailable Vitor Biggs MD Primary Care Provider [phone] Vitor Biggs MD Primary Care Provider Encounter Details Date Type Department Care Team (Late st Contact Info) Description 05/20/2023 Transcribe Orders Virtual Department 30 [place] [address] Vitor Biggs MD 238 [place], [place] [phone] [email or web address] Breast screening (Primary Dx) Social History Tobacco Use Types [...] with a working camera? Not on file Comments No Sex and Gender Information Value Date Recorded Sex Assigned at Female 08/27/2021 11:33 AM EDT Legal Sex Female 10:07 PM EDT Gender Identity Not on file Sexual Orientation Not on file documented as of this encounter Plan of Treatment Upcoming Encounters Date Type Department Care Team (Late st Contact Info) Description 09/15/2025 10:30 AM EDT Office Visit [facility] [address] [facility] 3rd Floor, [address] [place] [address] Jet Lynn DO [address] [facility] [address] [place] [address] [email or web address] Scheduled Orders Name Type Priority Associated Diagnoses Orde r Schedule Mammogram Screening (Bilateral) Imaging Routine Breast screening Expected: 05/20/2023, Expires: 11/19/2025 documented as of this encounter Visit Diagnoses Diagnosis Breast screening- Primary Breast screening, unspecified documented in this encounter Care Teams Interactive Digital Media Specialist Relationship Specialty Start Date End Date Vitor Biggs MD [email or web address] PCP - General Family Medicine 07/17/21 09/12/24 Vitor Biggs MD [address] [place] [address] [email or web address] PCP - General Family Medicine 09/13/24 Vitor Biggs MD [email or web address] Primary Care Physician 09/19/17 Andrews Cervantes MD [address] [facility], [address] [place] [address] [email or web address] Historical LMR Provider 09/19/17 documented as of this encounter Additional Source Comments The information contained in this document represents components of the legal health record. It is not the complete legal health record.[facility]
--- OUTSIDE RECORDS SUMMARY | 2025-07-25 22:34 | XMS_ITS | Encounter Summary ---
Author Organization [facility] Address [address] [facility] [address] [place] [address] Phone Care Team Providers Care Manager Physical Name Role Phone Soraya Mcdonough Unavailable Vitor Biggs MD Unavailable [phone] Fabiola Gilbert CNM Unavailable Abeba Chacon FRESCO ARTIST Unavailable Andrews Cervantes MD Unavailable Aditi Bowers MD Unavailable Edda Sim FRESCO ARTIST Unavailable Alta Weaver MD Unavailable Lukas Dawkins TUBE MAKING MACHINE OPERATOR Unavailable [phone] Vitor Biggs MD Primary Care Provider +1-4 Vitor Bigsg MD Primary Care Provider +1-4 Vitor Biggs MD Primary Care Provider +1-4 Vitor Biggs MD Primary Care Provider +1-4 Encounter Details Date Type Department Care Team (Late st Contact Info) Description 09/23/2017 Ancillary Orders Virtual Department [address] [place] [address] [phone] Vitor Biggs MD [address] [place] [address] [email or web address] Breast screening Social History Tobacco Use Types [...] Description 09/15/2025 10:30 AM EDT Office Visit [facility] [address] [place] [address] 3rd Floor, [address] [place] [address] Jet Lynn DO 22 [facility] [address] [place] [address] [email or web address] documented as of this encounter Results * BI MAMMOGRAM SCREENING WITH TOMOSYNTHESIS WITH CAD (BILATERAL) (01/14/2018 1:49 PM EST) Anatomical Region Laterality Modality Breast Left, Breast Right, Breast Bilateral Bila teral Mammography 01/14/2018 4:40 PM EST Impressions 01/14/2018 4:46 PM EST No mammographic change indicative of malignancy. Routine screening is recommended. BI-RADS CATEGORY: 2 - Benign finding. DENSITY: There are scattered fibroglandular densities. POS - [id number] Narrative 01/14/2018 4:46 PM EST FINDINGS: Bilateral full-field digital screening mammography is obtained and read in conjunction with computer-aided detection. 3-D tomosynthesis as well as 2-D C view imaging is also performed. Comparison includes the most recent exam from 02/27/2009 and as far back as 01/19/2001. History of left breast carcinoma status-post lumpectomy in 2000. Breasts are composed of scattered fibroglandular tissue. No significant change in post-surgical distortion in the upper outer left breast. Surgical clips again noted in the left axillary region. Multiple punctate calcifications superimposing the pectoral folds in a symmetric pattern bilaterally. Other scattered benign-appearing micro and macrocalcifications including vascular calcifications. No new dominant mass, suspicious microcalcifications, architectural distortion, focal skin thickening, or new asymmetry is detected. Procedure Note Ben Salcido MD - 01/14/2018 FINDINGS: Bilateral full-field digital screening mammography is obtained and read inconjunction with computer-aided detection. 3-D tomosynthesis as well as2-D C view imaging is also performed. Comparison includes the most recentexam from 02/27/2009 and as far back as 01/19/2001. History of left breast carcinoma status-post lumpectomy in 2000. Breasts are composed of scattered fibroglandular tissue. No significantchange in post-surgical distortion in the upper outer left breast.Surgical clips again noted in the left axillary region. Multiple punctatecalcifications superimposing the pectoral folds in a symmetric patternbilaterally. Other scattered benign-appearing micro andmacrocalcifications including vascular calcifications. No new dominant mass, suspicious microcalcifications, architecturaldistortion, focal skin thickening, or new asymmetry is detected. IMPRESSION: No mammographic change indicative of malignancy. Routine screening isrecommended. BI-RADS CATEGORY: 2 - Benign finding. DENSITY: There are scattered fibroglandular densities. POS - [id number] Vitro Biggs MD IMG MG EXAMS Final Resul t documented in this encounter Visit Diagnoses Diagnosis Breast screening Breast screening, unspecified Breast screening Breast screening, unspecified documented in this encounter Additional Health Concerns Infection Onset Date Last Indicated Resolved Time CoV-Risk 06/29/2020 07/02/2020 07/13/2020 1:36 AM EDT CoV-Risk 12/23/2020 12/25/2020 01/02/2021 1:25 AM EST documented as of this encounter Care Teams Manager Physical Relationship Specialty Start Date End Date Vitor Biggs MD [address] [place] [address] [email or web address] PCP - General 09/22/17 10/08/17 Vitor Biggs MD [address] [place] [address] [email or web address] PCP - General Family Medicine 10/09/17 07/16/21 Vitor Biggs MD 30 [place] [address] [email or web address] PCP - General Family Medicine 07/17/21 09/12/24 Vitor Biggs MD [address] [place] [address] [email or web address] PCP - General Family Medicine 09/13/24 Soraya Mcdonough DO [address] [place] [address] [email or web address] Historical LMR Provider 09/19/17 12/07/21 Vitor Biggs MD [address] [place] [address] [email or web address] Primary Care Physician 09/19/17 Fabiola Gilbert CNM [address] [place] [address] Historical LMR Provider 09/19/17 2 Abeba Chacon NP [address] [place] [address] Historical LMR Provider 09/19/17 2 Andrews Cervantes MD [address] [address] Historical LMR Provider 09/19/17 Aditi Bowers MD [address] [place] [address] Historical LMR Provider 09/19/17 2 Edda Sim NP [address] [place] [phone] Historical LMR Provider 09/19/17 2 Alta Weaver MD [address] [address] Historical LMR Provider 09/19/17 Lukas Dawkins CNP [address] [address] Historical LMR Provider 09/19/17 12/07/21 documented as of this encounter Additional Source Comments The information contained in this document represents components of the legal health record. It is not the complete legal health record.[facility]
--- OUTSIDE RECORDS SUMMARY | 2025-07-25 22:34 | XMS_ITS | Encounter Summary ---
Author Organization [facility] Address [address] [facility] [address] [place] [address] Phone Care Team Providers Care Top Cleaner Name Role Phone Soraya Mcdonough Unavailable Vitor Biggs MD Unavailable [phone] Fabiola Gilbert CNM Unavailable Abeba Chacon SUPERINTENDENT SEED MILL Unavailable [phone] Andrews Cervantes MD Unavailable Aditi Bowers MD Unavailable Edda Sim SUPERINTENDENT SEED MILL Unavailable Alta Weaver MD Unavailable [phone] Lukas Dawkins BRIDGE OPENER Unavailable [phone] Vitor Biggs MD Primary Care Provider +1-4 Vitor Biggs MD Primary Care Provider +1- Vitor Biggs MD Primary Care Provider [phone] Encounter Details Date Type Department Care Team (Late st Contact Info) Description 12/21/2020 Procedure Pass [facility] Endoscopy Admitting Dept Virtual Department 30 [place], [place] [phone] Social History Tobacco Use Types Packs/Day Years [...] Description 09/15/2025 10:30 AM EDT Office Visit [facility] [address] [facility] 3rd Floor, [address] [place] [address] Jet Lynn DO 22 [facility] [address] [place] [address] [email or web address] documented as of this encounter Visit Diagnoses Not on filedocumented in this encounter Additional Health Concerns Infection Onset Date Last Indicated Resolved Time CoV-Risk 12/23/2020 12/25/2020 01/02/2021 1:25 AM EST documented as of this encounter Care Teams Top Cleaner Relationship Specialty Start Date End Date Vitor Biggs MD 30 [place] [address] PCP - General Family Medicine 10/09/17 07/16/21 Vitor Biggs MD 30 [place] [address] PCP - General Family Medicine 07/17/21 09/12/24 Vitor Biggs MD [address] [place] [address] PCP - General Family Medicine 09/13/24 Soraya Mcdonough DO 30 [place] [address] [email or web address] Historical LMR Provider 09/19/17 12/07/21 Vitor Biggs MD 30 [place] [address] [email or web address] Primary Care Physician 09/19/17 Fabiola Gilbert CNM 30 [place] [address] Historical LMR Provider 09/19/17 2 Abeba Chacon SUPERINTENDENT SEED MILL 30 [place] [address] Historical LMR Provider 09/19/17 2 Andrews Cervantes MD [address] [address] Historical LMR Provider 09/19/17 Aditi Bowers MD [address] [place] [address] Historical LMR Provider 09/19/17 2 Edda Sim, SUPERINTENDENT SEED MILL [address] [place] [address] [phone] Historical LMR Provider 09/19/17 2 Alta Weaver MD [address] [facility], 2nd [place] [address] Historical LMR Provider 09/19/17 Lukas Dawkins, PEGGY [address] [facility], [address] [place] [address] [email or web address] Historical LMR Provider 09/19/17 12/07/21 documented as of this encounter Additional Source Comments The information contained in this document represents components of the legal health record. It is not the complete legal health record.[facility]
--- OUTSIDE RECORDS SUMMARY | 2025-07-25 22:34 | XMS_ITS | Continuity of Care Document ---
Author Name [facility] Address [address] [place] [id number] Organization Unknown Address [address] [place] [address] Medications No known medications Problems No known problems
--- OUTSIDE RECORDS SUMMARY | 2025-07-25 22:34 | XMS_ITS | Continuity of Care Document ---
Author Name [facility] Address [address] [place] [address] Organization Unknown Address [address] [place] [address] Medications No known medications Problems No known problems
--- OUTSIDE RECORDS SUMMARY | 2025-07-25 22:34 | XMS_ITS | Encounter Summary ---
Author Organization [facility] Address [address] [facility] [address] [place] [address] Phone Care Team Providers Care Sephora Operations Consultant Name Role Phone Soraya Mcdonough Unavailable Vitor Biggs MD Unavailable [phone] Fabiola GilbertM Unavailable Abeba Chacon SQUARE SHEAR OPERATOR Unavailable [phone] Andrews Cervantes MD Unavailable Aditi Bowers MD Unavailable Edda Sim SQUARE SHEAR OPERATOR Unavailable Alta Weaver MD Unavailable Lukas Dawkins VENDING ATTENDANT Unavailable [phone] Vitor Biggs MD Primary Care Provider +1-4 Vitor Biggs MD Primary Care Provider +1-4 Vitor Biggs MD Primary Care Provider +1-4 Encounter Details Date Type Department Care Team (Late st Contact Info) Description 06/29/2020 Transcribe Orders Virtual Department 30 [place], [place] [phone] Radha Ashley NP [address] [place] [phone] [email or web address] Fever, unspecified fever cause (Primary Dx); Muscle ache; Runny nose; Nasal congestion Social History Tobacco Use Types Packs/Day Years [...] Description 09/15/2025 10:30 AM EDT Office Visit [facility] [address] [place] [address] 3rd [facility], [address] [place] [address] Jet Lynn DO [address] [place] [address] [email or web address] documented as of this encounter Results * COVID-19 PCR Order (07/02/2020 2:25 PM EDT) Specimen Source NASOPHARYNGEAL SWAB (SQUARE SHEAR OPERATOR) [facility] COVID Testing Status Sent to [facility] Micro Lab [facility] Other 07/02/2020 2:25 PM EDT 07/02/2020 2:52 PM EDT Radha Ashley SQUARE SHEAR OPERATOR BODY FLUIDS AND STOO LS ORDERABLES Final Result [facility] 30 [place] [address] documented in this encounter Visit Diagnoses Diagnosis Fever, unspecified fever cause- Primary Muscle ache Unspecified myalgia and myositis Runny nose Other diseases of nasal cavity and sinuses Nasal congestion Other diseases of nasal cavity and sinuses documented in this encounter Additional Health Concerns Infection Onset Date Last Indicated Resolved Time CoV-Risk 06/29/2020 07/02/2020 07/13/2020 1:36 AM EDT CoV-Risk 12/23/2020 12/25/2020 01/02/2021 1:25 AM EST documented as of this encounter Care Teams Sephora Operations Consultant Relationship Specialty Start Date End Date Vitor Biggs MD 30 [place] [address] [email or web address] PCP - General Family Medicine 10/09/17 07/16/21 Vitor Biggs MD 30 [place] [address] [email or web address] PCP - General Family Medicine 07/17/21 09/12/24 Vitor Biggs MD [address] [place] [address] [email or web address] PCP - General Family Medicine 09/13/24 Soraya Mcdonough DO 30 [place] [address] [email or web address] Historical LMR Provider 09/19/17 12/07/21 Vitor Biggs MD 30 [place] [address] [email or web address] Primary Care Physician 09/19/17 Fabiola Gilbert CNM 30 [place] [address] Historical LMR Provider 09/19/17 2 Abeba Chacon NP [address] [place] [address] Historical LMR Provider 09/19/17 2 Andrews Cervantes MD [address] [address] Historical LMR Provider 09/19/17 Aditi Bowers MD [address] [place] [address] Historical LMR Provider 09/19/17 2 Edda Sim NP [address] [place] [phone] Historical LMR Provider 09/19/17 2 Alta Weaver MD [address] [address] Historical LMR Provider 09/19/17 Lukas Dawkins CNP [address] [address] Historical LMR Provider 09/19/17 12/07/21 documented as of this encounter Additional Source Comments The information contained in this document represents components of the legal health record. It is not the complete legal health record.[facility]
--- OUTSIDE RECORDS SUMMARY | 2025-07-25 22:35 | XMS_ITS | Encounter Summary ---
Author Organization [facility] Address [address] [facility] [address] [place] [address] Phone Care Team Providers Care Hire Car Driver Name Role Phone Soraya Mcdonough DO Unavailable Vitor Biggs MD Unavailable [phone] Fabiola Gilbert CNM Unavailable Abeba Chacon HIGH LIGHTER Unavailable [phone] Andrews Cervantes MD Unavailable Aditi Bowers MD Unavailable Edda Sim HIGH LIGHTER Unavailable Alta Weaver MD Unavailable [phone] Lukas Dawkins ASSOCIATE PROFESSOR OF BIOLOGY Unavailable [phone] Vitor Biggs MD Primary Care Provider +1-4 Vitor Biggs MD Primary Care Provider +1-4 Vitor Biggs MD Primary Care Provider +1- Encounter Details Date Type Department Care Team (Latest Contact Info) Description 10/09/2017 Transcribe Orders [facility] Laboratory [address] [place] [address] Anuja Mejía PA-C [address] [place] [address] Sclerosing mesenteritis (Primary Dx); Upper abdominal pain; Diarrhea, unspecified type Social History Tobacco Use Types Packs/Day [...] Description 09/15/2025 10:30 AM EDT Office Visit [facility] [address] [place] [address] 3rd Floor, [address] [place] [address] Jet Lynn DO [address] [place] [address] [place] [address] [email or web address] documented as of this encounter Procedures Procedure Name Priority Date/Time Associated Diagnosis Comments STOOL FAT, MUSCLE, FIBER Routine 10/09/2017 11:29 AM EST CALPROTECTIN, STOOL Routine 10/08/2017 1 1:29 AM EST Sclerosing mesenteritis Upper abdominal pain Diarrhea, unspecified type STOOL CULTURE Routine 10/08/2017 11:29 AM EST Sclerosing mesenteritis Upper abdominal pain Diarrhea, unspecified type documented in this encounter Results * (ABNORMAL) Stool fat/fiber exam (10/09/2017 11:29 AM EST) FATTY ACID Negative(A ) NORMAL [facility] Neutral Fat, stool Negative(A ) [facility] 10/09/2017 11:2 9 AM EST 10/11/2017 3:12 PM EST us Unknown Unknown MD BODY FLUIDS AND STOOLS ORDERA BLES Final Result [facility] [address] [place] [address] * (ABNORMAL) Stool culture (10/08/2017 11:29 AM EST) Specimen Source/ Description STOOL STOOL SAMPLE STOOL [facility] Special Requests None [facility] Culture/Test NO SALMONELLA, SHIGELLA OR CAMPYLOBACTER ISOLATED(A) [facility] Report Status 10/12/2017 FINAL [facility] Stool (Stool) 10/08/2017 11: 29 AM EST 10/09/2017 11:32 AM EST Anuja Mejía PA-C MICROBIOLOGY - GENERAL ORDERABL ES Final Result [address] [address] * (ABNORMAL) Calprotectin, stool (10/08/2017 11:29 AM EST) CALPROTECTIN 77.8(H) <=50.0 (Normal) mcg/g [facility] DPT OF LAB MED AND PAT+ Comment: (NOTE) Interpretation: Borderline (50.1-120.0 mcg/g) Stool (Stool) 10/08/2017 11: 29 AM EST 10/09/2017 11:31 AM EST us Anuja Mejía PA-C BODY FLUIDS AND STOOLS ORDERABL ES Final Result [facility] DPT OF LAB MED AND PAT+ [address] [place] [address] documented in this encounter Visit Diagnoses Diagnosis Sclerosing mesenteritis- Primary Upper abdominal pain Diarrhea, unspecified type documented in this encounter Additional Health Concerns Infection Onset Date Last Indicated Resolved Time CoV-Risk 06/29/2020 07/02/2020 07/13/2020 1:36 AM EDT CoV-Risk 12/23/2020 12/25/2020 01/02/2021 1:25 AM EST documented as of this encounter Care Teams Hire Car Driver Relationship Specialty Start Date End Date Vitor Biggs MD [address] [place] [address] [email or web address] PCP - General Family Medicine 10/09/17 07/16/21 Vitor Biggs MD [address] [place] [address] [email or web address] PCP - General Family Medicine 07/17/21 09/12/24 Vitor Biggs MD [address] [place] [address] [email or web address] PCP - General Family Medicine 09/13/24 Soraya Mcdonough DO 30 [place] [address] [email or web address] Historical LMR Provider 09/19/17 12/07/21 Vitor Biggs MD 30 [place] [address] [email or web address] Primary Care Physician 09/19/17 Fabiola Gilbert CNM [address] [place] [address] Historical LMR Provider 09/19/17 2 Abeba Chacon NP [address] [place] [address] Historical LMR Provider 09/19/17 2 Andrews Cervantes MD [address] [place] [address], [address] [address] Historical LMR Provider 09/19/17 Aditi Bowers MD [address] [place] [address] Historical LMR Provider 09/19/17 2 Edda Sim NP [address] [place] [phone] Historical LMR Provider 09/19/17 2 Alta Weaver MD [address] [address] Historical LMR Provider 09/19/17 Lukas Dawkins CNP [address] [address] Historical LMR Provider 09/19/17 12/07/21 documented as of this encounter Additional Source Comments The information contained in this document represents components of the legal health record. It is not the complete legal health record.[facility]
--- OUTSIDE RECORDS SUMMARY | 2025-07-25 22:35 | XMS_ITS | Encounter Summary ---
Author Organization [facility] Address [address] [facility] [address] [place] [address] Phone Care Team Providers Care Hydrometeorology Teacher Name Role Phone Soraya Mcdonough DO Unavailable Vitor Biggs MD Unavailable [phone] Fabiola Gilbert CNM Unavailable Abeba Chacon CAPTAIN/CHECK AIRMAN Unavailable [phone] Andrews Cervantes MD Unavailable Aditi Bowers MD Unavailable Edda Sim CAPTAIN/CHECK AIRMAN Unavailable Alta Weaver MD Unavailable [phone] Lukas Dawkins ASSISTANT HEALTH EDUCATOR Unavailable [phone] Vitor Biggs MD Primary Care Provider +1-4 Vitor Biggs MD Primary Care Provider +1-4 Vitor Biggs MD Primary Care Provider +1- Encounter Details Date Type Department Care Team (Latest Contact Info) Description 10/19/2017 Transcribe Orders [facility] Laboratory [address] [place] [address] Anuja Mejía PA-C [address] [place] [address] [email or web address] Sclerosing mesenteritis (Primary Dx) Social History Tobacco [...] Description 09/15/2025 10:30 AM EDT Office Visit [facility] [address] [facility] 3rd Floor, [address] [place] [address] Jet Lynn DO 22 [facility] [address] [place] [address] [email or web address] documented as of this encounter Results * Ova and parasites, stool (10/19/2017 11:32 AM EST) Specimen Source/ Description STOOL STOOL [facility] Special Requests None [facility] DIRECT EXAM NO OVA OR PARASITES SEEN [facility] Report Status 10/27/2017 FINAL [facility] Stool (Stool) 10/19/2017 11: 32 AM EST 10/20/2017 11:36 AM EST us Anuja Mejía PA-C MICROBIOLOGY - GENERAL ORDERABL ES Final Result [facility] 30 [place] [address] documented in this encounter Visit Diagnoses Diagnosis Sclerosing mesenteritis- Primary documented in this encounter Additional Health Concerns Infection Onset Date Last Indicated Resolved Time CoV-Risk 06/29/2020 07/02/2020 07/13/2020 1:36 AM EDT CoV-Risk 12/23/2020 12/25/2020 01/02/2021 1:25 AM EST documented as of this encounter Care Teams Hydrometeorology Teacher Relationship Specialty Start Date End Date Vitor Biggs MD [address] [place] [address] [email or web address] PCP - General Family Medicine 10/09/17 07/16/21 Vitor Biggs MD [address] [place] [address] [email or web address] PCP - General Family Medicine 07/17/21 09/12/24 Vitor Biggs MD [address] [place] [address] [email or web address] PCP - General Family Medicine 09/13/24 Soraya Mcdonough DO [address] [place] [address] [email or web address] Historical LMR Provider 09/19/17 12/07/21 Vitor Biggs MD [address] [place] [address] [email or web address] Primary Care Physician 09/19/17 Fabiola Gilbert CNM [address] [place] [address] Historical LMR Provider 09/19/17 2 Abeba Chacon NP [address] [place] [address] Historical LMR Provider 09/19/17 2 Andrews Cervantes MD [address] [place] [address] Historical LMR Provider 09/19/17 Aditi Bowers MD [address] [place] [address] Historical LMR Provider 09/19/17 2 Edda Sim NP [address] [place] [phone] Historical LMR Provider 09/19/17 2 Alta Weaver MD [address] [address] Historical LMR Provider 09/19/17 Lukas Dawkins CNP [address] [address] Historical LMR Provider 09/19/17 12/07/21 documented as of this encounter Additional Source Comments The information contained in this document represents components of the legal health record. It is not the complete legal health record.[facility]
--- OUTSIDE RECORDS SUMMARY | 2025-07-25 22:35 | XMS_ITS | Encounter Summary ---
Author Organization [facility] Address [address] [place] [address] Phone Care Team Providers Care Ornament Setter Name Role Phone Soraya Mcdonough DO Unavailable Vitor Biggs MD Unavailable [phone] Fabiola Gilbert CNM Unavailable Abeba Chacon [employer] Unavailable [phone] Andrews Cervantes MD Unavailable Aditi Bowers MD Unavailable Edda Sim [employer] Unavailable Alta Weaver MD Unavailable [phone] Lukas Dawkins SCIENTIFIC WRITER Unavailable [phone] Vitor Biggs MD Primary Care Provider +[phone] Vitor Biggs MD Primary Care Provider +1-4 Vitor Biggs MD Primary Care Provider +1- Encounter Details Date Type Department Care Team (Latest Contact Info) Description 10/16/2017 Transcribe Orders [facility] [address] [place] [address] Anuja Mejía PA-C [address] [place] [address] Sclerosing mesenteritis (Primary Dx) Social History Tobacco [...] Description 09/15/2025 10:30 AM EDT Office Visit [facility] [address], [address] [place] [address] Jet Lynn DO [address] [place] [phone] [email or web address] documented as of this encounter Results * Ova and parasites, stool (10/20/2017 11:32 AM EST) Specimen Source/ Description STOOL [facility] Special Requests STOOL [facility] DIRECT EXAM NO OVA OR PARASITES SEEN [facility] Report Status 10/27/2017 FINAL [facility] Stool (Stool) 10/20/2017 11: 32 AM EST 10/20/2017 11:36 AM EST us Anuja Mejía PA-C MICROBIOLOGY - GENERAL ORDERABL ES Final Result [facility] [address] [place] [address] documented in this encounter Visit Diagnoses Diagnosis Sclerosing mesenteritis- Primary documented in this encounter Additional Health Concerns Infection Onset Date Last Indicated Resolved Time CoV-Risk 06/29/2020 07/02/2020 07/13/2020 1:36 AM EDT CoV-Risk 12/23/2020 12/25/2020 01/02/2021 1:25 AM EST documented as of this encounter Care Teams Ornament Setter Relationship Specialty Start Date End Date Vitor Biggs MD [address] [place] [address] [email or web address] PCP - General Family Medicine 10/09/17 07/16/21 Vitor Biggs MD [address] [place] [address] [email or web address] PCP - General Family Medicine 07/17/21 09/12/24 Vitor Biggs MD [address] [place] [phone] [email or web address] PCP - General Family Medicine 09/13/24 Soraya Mcdonough DO [address] [place] [phone] [email or web address] Historical LMR Provider 09/19/17 12/07/21 Vitor Biggs MD [address] [place] [phone] [email or web address] Primary Care Physician 09/19/17 Fabiola Gilbert CNM [address] [place] [phone] Historical LMR Provider 09/19/17 2 Abeba Chacon NP [address] [place] [phone] Historical LMR Provider 09/19/17 2 Andrews Cervantes MD [address] [place] [address] Historical LMR Provider 09/19/17 Aditi Bowers MD [address] [place] [phone] Historical LMR Provider 09/19/17 2 Edda Sim NP [address] [place] [phone] Historical LMR Provider 09/19/17 2 Alta Weaver MD [address] [address] Historical LMR Provider 09/19/17 Lukas Dawkins, SCIENTIFIC WRITER [address] [address] Historical LMR Provider 09/19/17 12/07/21 documented as of this encounter Additional Source Comments The information contained in this document represents components of the legal health record. It is not the complete legal health record.[facility]
[2025-07-25 22:46] LABS: Troponin-I High Sensitivity 8.2 ng/L (<3.5-17.0)
[2025-07-25 23:01] LABS: Hematocrit 34.2 % (37.0-47.0); Hemoglobin 11.8 g/dl (12.0-16.0); Imm Gran Abs Auto 0.01 X10*3/uL (0.00-0.03); Imm Gran Pct Auto 0.1 % (0.0-0.4); Lymphocytes Absolute Auto 2.5 X10*3/uL (1.2-4.9); Mean Corpuscular HGB Conc 34.5 g/dl (31.0-35.0); Mean Corpuscular Hemoglobin 28.8 pg (27.0-33.0); Mean Corpuscular Volume 83.4 fL (80.0-98.0); NRBC Abs Auto 0.000 X10*3/uL (0.0-0.012); NRBC Pct Auto 0.0 /100WBC (0.0-0.2); Platelet Count 297 X10*3/uL (160-400); Red Blood Count 4.10 X10*6/uL (4.20-5.50); White Blood Count 7.3 X10*3/uL (4.8-10.8)
[2025-07-26 00:54] VITALS: BP 147/63; PULSE 58; RESP 16; TEMP 36.3; O2SAT 98
[2025-07-26 01:03] LABS: Appearance Urine Clear; Glucose Urine UA Negative (Negative); PH 7.5 (5.0-9.0); Specific Gravity - Urine <= 1.005 (1.005-1.025); UMIC TRIGGER UACC YES
[2025-07-26 01:34] LABS: UACC Culture Trigger YES
--- NOTE | 2025-07-26 04:45 | ED.BACK ---
HPI - Back Pain/Injury General Chief Complaint: Back Pain/Injury Stated Complaint: mid back pain & dizzy pmhx of back pain Time Seen by Provider: 07/26/25 04:44 Source: patient and EMS Mode of arrival: EMS Limitations: no limitations History of Present Illness ED Provider: Dr. Daphne Arriola HPI Narrative: 80-year-old female with history of hypertension, sclerosing mesenteritis, previously treated with colchicine, osteoporosis presenting with right upper back pain radiating to her right shoulder and right upper quadrant ongoing for the last several hours prior to arrival. Patient admits that she was standing up talking on the phone when the pain started. Pain has been relatively constant since it started but waxes and wanes in intensity. Not associated with food intake or movement. No associated chest pain, shortness of breath, cough or cold-type symptoms, nausea, vomiting or diarrhea. She does admit to a poor appetite though. Admits that while she was outside today she thought she might pass out due to the pain. Has never felt this pain before. She does still have a gallbladder. Denies urinary complaints. Related Data Home Medications ?Medication ?Instructions ?Recorded ?Confirmed carisoprodol 350 mg tablet 350 mg PO BEDTIME 11/04/23 11/04/23 carvedilol 12.5 mg tablet 12.5 mg PO BID 11/04/23 11/04/23 cholecalciferol (vitamin D3) 50 50 mcg PO DAILY 11/04/23 11/04/23 mcg (2,000 unit) capsule (Vitamin D3) clonazepam 0.5 mg tablet 0.5 mg PO BID 11/04/23 11/04/23 clonazepam 0.5 mg tablet 0.5 mg PO DAILY@1200 PRN Anxiety 11/04/23 11/04/23 fluticasone propionate 50 1 spray intranasal DAILY 11/04/23 11/04/23 mcg/actuation nasal spray,suspension guanfacine 1 mg tablet 1 mg PO BID 11/04/23 11/04/23 hydromorphone 2 mg tablet 2 mg PO BID PRN Pain (Scale Score 11/04/23 11/04/23 7-10) lansoprazole 30 mg capsule,delayed 30 mg PO DAILY 11/04/23 11/04/23 release multivitamin 1 tab PO DAILY 11/04/23 11/04/23 vitamin B complex 1 tab PO DAILY 11/04/23 11/04/23 Previous Rx's ?Medication ?Instructions ?Recorded amlodipine 5 mg tablet (Norvasc) 5 mg PO DAILY #30 tabs 11/05/23 colchicine 0.6 mg capsule 0.6 mg PO DAILY #10 caps 07/26/25 Allergies Allergy/AdvReac Type Severity Reaction Status Date / Time codeine (CODEINE) Allergy Unknown DIFFICULTY Verified 07/25/25 21:48 BREATHING epinephrine (EPINEPHRINE) Allergy Unknown UNKNOWN Verified 07/25/25 21:48 iodine (Iodine) Allergy Unknown DIFFICULTY Verified 07/25/25 21:48 BREATHING penicillin V Allergy Unknown Unknown Verified 07/25/25 21:48 Sulfa (Sulfonamide Allergy Unknown RASH Verified 07/25/25 21:48 Antibiotics) nitrofurantoin AdvReac Unknown Verified 07/25/25 21:48 From Pen-Vee K Allergy Unknown RASH Uncoded 07/25/25 21:48 From PERCOCET AdvReac Unknown NIGHTMARES/ Uncoded 07/25/25 21:48 AGITATION Review of Systems Review of Systems: as per HPI, full review of systems performed and negative but for the above mentioned pertinent positives and negatives. [facility] Past Medical History Medical History Endometriosis Rheumatoid arthritis Hypertension, essential Asthma Sclerosing mesenteritis Osteoarthritis GERD (gastroesophageal reflux disease) Breast cancer, left Surgical History History of lumpectomy of left breast History of total abdominal hysterectomy History of section History of ovarian cystectomy Family History Family History Mother No problems noted. Social History Social History Patient Tobacco Use Status: Former Tobacco user Substance Use Type: Marijuana Advance Directives Date on File: 11/04/23 service: No Physical Exam Exam: Exam: GENERAL: Chronically ill-appearing, conversant, no acute distress. SKIN: Normal skin color for ethnicity, warm, dry, no rashes noted. HEENT: Normocephalic, atraumatic, no stridor, posterior oropharynx nonerythematous, EOMI. NECK: Soft, supple, full ROM, midline structures nontender, no step-offs, no deformities, no lymphadenopathy. CHEST: Heart regular rate and rhythm, no murmurs, symmetric chest rise and fall. PULMONARY: Clear to auscultation bilaterally, no labored breathing, no wheezes/rhales/ rhonchi. ABDOMINAL: Soft, nondistended, mild RUQ tenderness to palpation without rebound or guarding, no flank tenderness to percussion, positive bowel sounds in all quadrants. : Deferred. MUSCULOSKELETAL: Normal tone, full range of motion, no deformities, no peripheral edema. NEURO: Alert and oriented to person, CN II through XII intact, no focal neurologic deficits. PSYCHIATRIC: Flat affect, fluid speech, appropriate demeanor. Vital Signs: Vital Signs: Last Vital Signs Temp 97.4 F 07/26/25 07:49 Pulse 58 07/26/25 07:49 Resp 16 07/26/25 07:49 BP 118/53 L 07/26/25 07:49 Pulse Ox 98 07/26/25 07:49 O2 Del Method Room Air 07/26/25 07:49 BMI result Body Mass Index 25.1 Medications Administered Discontinued Medications Generic Name Dose Route Start Last Admin Trade Name Freq PRN Reason Stop Dose Admin Acetaminophen 650 mg 07/26/25 05:12 07/26/25 05:34 Acetaminophen 325 Mg Tablet PO 07/26/25 05:13 650 mg ONCE ONE Administration Ondansetron HCl 4 mg 07/26/25 05:12 07/26/25 05:35 Ondansetron Odt 4 Mg Tab.Rapdis TRANSLINGU 07/26/25 05:13 4 mg ONCE ONE Administration Medical Decision Making Medical Decision Making [facility] Narrative: This patient presents today with a chief complaint of abdominal pain/flank pain. Differential diagnosis for this patient is broad.? It includes appendicitis, cholecystitis, bowel obstruction, diverticulitis, peptic ulcer disease, pyelonephritis, vascular pathology, flare up of sclerosing mesenteritis, kidney stone, among many others.? A broad-based workup based on history and physical examination was obtained. ? Patient was given APAP for pain control. ? Workup today is reassuring. Blood work is normal. Patient is feeling improved after Tylenol and Zofran. 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 She is requesting colchicine for this as it helped her previously. Plan for follow-up as an outpatient. Using shared decision making, plan for discharge home to follow-up with primary care and/or specialist.? Patient understands and agrees with plan for discharge.? Discharged home in stable condition. Differential Diagnosis Differential Diagnoses: The differential diagnosis associated with the presentation includes (as above) Admission/Observation Consideration of admission/observation: Escalation of care including admission/observation considered Lab Data MDM Lab Attestation statement: I reviewed the patient's lab results. 07/25/25 22:08 07/25/25 22:08 Labs: Lab Results 07/25/25 07/26/25 Range/Units 22:08 00:56 WBC 7.3 (4.8-10.8) X10*3/uL RBC 4.10 L (4.20-5.50) X10*6/uL Hgb 11.8 L (12.0-16.0) g/dl Hct 34.2 L (37.0-47.0) % MCV 83.4 (80.0-98.0) fL MCH 28.8 (27.0-33.0) pg MCHC 34.5 (31.0-35.0) g/dl RDW 13.5 (11.0-16.0) % Plt Count 297 D (160-400) X10*3/uL MPV 9.9 (9.4-12.3) fL Immature Gran % (Auto) 0.1 (0.0-0.4) % Neut % (Auto) 54.1 (45-73) % Lymph % (Auto) 34.0 (20-40) % Maverick % (Auto) 8.8 (2-11) % Eos % (Auto) 2.5 (0-4) % Baso % (Auto) 0.5 (0-2) % Lymph # (Auto) 2.5 (1.2-4.9) X10*3/uL Maverick # (Auto) 0.6 (0.1-1.2) X10*3/uL Eos # (Auto) 0.2 (0.0-0.4) X10*3/uL Baso # (Auto) 0.0 (0.0-0.2) X10*3/uL Abs Immat Gran (auto) 0.01 (0.00-0.03) X10*3/uL Absolute Neuts (auto) 4.0 (2.0-8.3) x10*3/uL Absolute Nucleated RBC 0.000 (0.0-0.012) X10*3/uL Nucleated RBC % (auto) 0.0 (0.0-0.2) /100WBC Sodium 136 (135-145) mmol/L Potassium 4.7 (3.3-5.1) mmol/L Chloride 99 (96-108) mmol/L Carbon Dioxide 29 (22-29) mmol/L Anion Gap 13 (12-20) BUN 27 H (9-16) mg/dL Creatinine 1.23 (0.5-1.4) mg/dL Estim Creat Clear Calc 27.5 Estimated GFR 42 Random Glucose 108 (60-115) mg/dL Calcium 9.2 (8.4-10.2) mg/dL Troponin I High Sens 8.2 D (<3.5-17.0) ng/L Urine Color Yellow Urine Appearance Clear Urine pH 7.5 (5.0-9.0) Ur Specific Ten Sleep <= 1.005 (1.005-1.025) Urine Protein Negative (Neg-Trace) mg/dL Urine Glucose (UA) Negative (Negative) mg/dL Urine Ketones Negative (Negative) mg/dL Urine Blood Negative (Negative) Urine Nitrite Negative (Negative) Ur Leukocyte Esterase Moderate (2+) H (Negative) Urine RBC 0-2 (0-2) /HPF Urine WBC 0-5 (0-5) /HPF Ur Squamous Epith Cells 0-2 (0-2) /HPF Urine Bacteria None Seen (None Seen) Hyaline Casts 0-2 (0-2) /LPF Radiology Impression Discussion of test interpretation with radiology: I have reviewed the radiologist's reading. Radiologist Impression: CT abdomen and pelvis without contrast Comparison: None provided Findings: There is a small hiatal hernia. There is calcification of the mitral valve. 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 The gallbladder and the rest of the solid organs are unremarkable. No bowel obstruction, pneumoperitoneum, or pneumatosis. There is a relatively large stool burden particularly in the right colon suggesting constipation. 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 There is mild colonic diverticulosis. There is no evidence of diverticulitis. The appendix is not identified. There is no evidence of appendicitis. The patient is status post hysterectomy. The bones are intact. IMPRESSION: 1. There is a relatively large stool burden particularly in the right colon suggesting constipation. 2. Mesenteric panniculitis. 3. Mild colonic diverticulosis. 4. Small hiatal hernia. This document has been electronically signed by: Gianni Maharaj MD on 07/26/2025 05:55:05 Prescription Management I considered prescription management with: Pain Medication Chronic Conditions Patient?s care impacted by: Other (sclerosing mesenteritis) Social Determinants Patient?s care significantly limited by Social Determinants of Health including: Problems related to primary support group Discharge Plan Discharge Clinical Impression: Sclerosing mesenteritis, Acute abdominal pain in right upper quadrant, Near syncope Patient Disposition: Home, Self-Care Instructions: Abdominal Pain (ED), Near Syncope (ED) Additional Instructions: Stay well hydrated over the next several days. Use acetaminophen for abdominal pain or shoulder pain. Return to the emergency department immediately with any new or worsening symptoms including: Worsening pain despite medication, fevers greater than 100 degrees, passing out completely, chest pain, difficulty breathing, any new symptom that concerns you. Call 911 with any medical emergency. Prescriptions: New colchicine 0.6 mg capsule 0.6 mg PO DAILY Qty: 10 0RF No Action multivitamin Tablet 1 tab PO DAILY carisoprodol 350 mg tablet 350 mg PO BEDTIME carvedilol 12.5 mg tablet 12.5 mg PO BID clonazepam 0.5 mg tablet 0.5 mg PO BID clonazepam 0.5 mg tablet 0.5 mg PO DAILY@1200 PRN (Reason: Anxiety) hydromorphone 2 mg tablet 2 mg PO BID PRN (Reason: Pain (Scale Score 7-10)) lansoprazole 30 mg Capsule,Delayed Release(Dr/Ec) 30 mg PO DAILY guanfacine 1 mg tablet 1 mg PO BID vitamin B complex Tablet 1 tab PO DAILY fluticasone propionate 50 mcg/actuation spray,suspension 1 spray intranasal DAILY cholecalciferol (vitamin D3) [Vitamin D3] 50 mcg (2,000 unit) capsule 50 mcg PO DAILY amlodipine [Norvasc] 5 mg tablet 5 mg PO DAILY Qty: 30 0RF Interventions: ED Discharge Assessment Last Done: 07/26/25 07:49 Discharge Date/Time: 07/26/25 07:55 Print Language: Polish
[2025-07-26 04:54] VITALS: BP 113/50; PULSE 62; RESP 16; TEMP 36.3; O2SAT 97
--- NOTE | 2025-07-26 05:15 | PC.NURSE ---
pt taken to CT SCan
--- NOTE | 2025-07-26 05:36 | PC.NURSE ---
pt back from CT Scan, medicated per jan.
[2025-07-26 06:45] VITALS: BP 118/53; PULSE 58; RESP 16; TEMP 36.3; O2SAT 98
[2025-07-26 07:49] VITALS: BP 118/53; PULSE 58; RESP 16; TEMP 36.3; O2SAT 98
== END 2025-07-26 07:55 | disposition home or self-care (01) ==
PROVIDERS: Emergency Provider Emergency Medicine; PCP Family Medicine
DX: K65.4 Sclerosing mesenteritis (principal); R10.11 Right upper quadrant pain; R55 Syncope and collapse; M54.9 Dorsalgia, unspecified; I10 Essential (primary) hypertension; M81.0 Age-related osteoporosis without current pathological fracture; R63.0 Anorexia; M06.9 Rheumatoid arthritis, unspecified; J45.909 Unspecified asthma, uncomplicated; K21.9 Gastro-esophageal reflux disease without esophagitis; Z87.891 Personal history of nicotine dependence; F12.90 Cannabis use, unspecified, uncomplicated
CPT/HCPCS: 36415; 74176; 80048; 81001; 84484; 85025; 87086; 93005; 99285

== ENCOUNTER → 2025-07-25 21:56 | Outpatient (BNV) | payer OTHER, SELFPAY | PROVIDERS: Emergency Provider Emergency Medicine; PCP Family Medicine; Visit Provider Internal Medicine | DX: R94.31 Abnormal electrocardiogram [ECG] [EKG] (principal); R55 Syncope and collapse | CPT/HCPCS: 93010 ==

== ENCOUNTER → 2025-07-26 05:12 | Outpatient (BNV) | payer OTHER, SELFPAY | PROVIDERS: Emergency Provider Emergency Medicine; PCP Family Medicine; Visit Provider Radiology Diagnostic Radiology | DX: M79.3 Panniculitis, unspecified (principal) | CPT/HCPCS: 74176 ==